=== PATIENT | male | born 1950 | race Caucasian/White ===

== ENCOUNTER 2020-10-26 19:38 | Observation (INO) | payer MEDICARE, OTHER, SELFPAY ==
[2020-10-26] VITALS (15 sets, daily range): BP systolic 113–155; BP diastolic 73–98; PULSE 73–80; RESP 13–24; TEMP 36.6; O2SAT 93–98
--- NOTE | ~2020-10-26 | CT_ITS ---
EXAMINATION: CT brain wo con DATE: 10/26/2020 20:59 INDICATION: COVID 19. Weakness. TECHNIQUE: Computed tomography (CT) of the head was performed without intravenous contrast. Sagittal and coronal reconstructions were performed. The mA was adjusted according to patient size. Iterative reconstruction technique was employed. The dose-length product was 605.33 mGy-cm. COMPARISON: head CT dated 03/12/2005 FINDINGS: No acute intracranial hemorrhage, acute infarction or mass/mass effect. There is moderate scattered w tobi matter hypoattenuation consistent with chronic small vessel ischemic disease. There is increase d prominence of the sulci and ventricles consistent with mild to moderate age-appropriate diffuse cer ebral volume loss. Mild mucosal thickening the bilateral ethmoid sinuses. The orbits and mastoid air cells are normal. Intracranial calcified cerebral atherosclerosis is noted. IMPRESSION: 1. Age-related changes including mild to moderate diffuse volume loss and scattered white matter hypo attenuation consistent with chronic small vessel schema disease. Reviewed, dictated and finalized at location . UCTION TECHNICIAN IMPRESSION: 1. Age-related changes including mild to moderate diffuse volume loss and scatt ered white matter hypoattenuation consistent with chronic small vessel schema d isease.
--- NOTE | ~2020-10-26 | XR_ITS ---
EXAMINATION: XR chest 1V portable DATE: 10/26/2020 21:00 INDICATION: COVID 19. Weakness and fatigue. TECHNIQUE: frontal view of the chest was obtained. COMPARISON: Chest radiograph dated 04/01/2014 FINDINGS: Subtle opacities in the left mid and right lower lung zones. No pleural effusion or pneumothorax. The cardiomediastinal silhouette is normal. Median sternotomy wires and mediastinal surgical clips are s een, likely from prior coronary artery bypass grafting. IMPRESSION: 1. Subtle opacities in the left mid and right lower lung zones which could represent pneumonia, mild pulmonary edema, atelectasis or some combination thereof. Reviewed, dictated and finalized at location H. DATABASE ADMINISTRATOR IMPRESSION: 1. Subtle opacities in the left mid and right lower lung zones which could repr esent pneumonia, mild pulmonary edema, atelectasis or some combination thereof.
--- NOTE | 2020-10-26 19:43 | ECG_ITS ---
Measurements Intervals [place] Rate: 79 P: 17 [place]: 190 QRS: 27 QRSD: 106 T: 72 QT: 355 QTc: 409 Interpretive Statements SINUS RHYTHM CANNOT RULE OUT SEPTAL INFARCT, AGE INDETERMINATE CONSIDER INFERIOR INFARCT, AGE INDETERMINATE BORDERLINE ST-T WAVE ABNORMALITY- HIGH LATERAL LEADS BASELINE ARTIFACT- I, II, III, AVR, AVL, AVF, V1-V4 ABNORMAL ECG Electronically Signed On 10-27-2020 8:46:33 DESIGN AGENT by Nile Warren D.O.
--- NOTE | 2020-10-26 19:43 | ED.WEAKNESS ---
HPI - Weakness General Chief complaint: Weakness Stated complaint: covid +, weakness, decreased urine output Time Seen by Provider: 10/26/20 19:43 Source: patient and EMS Mode of arrival: EMS Limitations: no limitations History of Present Illness HPI Narrative: Patient is a 70-year-old male who presents for evaluation of lethargy, weakness, cough and shortness of breath in the setting of recent Covid diagnosis. Patient states he had a positive Covid test result called to him today. His daughter prompted him to come to the ER due to his cough, shortness of breath and diffuse weakness. Patient currently is alert and oriented x4, when I asked if he has a cough he initially denies but then states he does have a cough and is coughing in the room. He is denying any chest pain. He is reporting feeling diffusely weak. He denies any focal weakness or numbness. He reports he has had decreased urine output today, but then also states he has had nothing to eat or drink because he does not feel well. Patient oxygen saturation in room is 88% on room air during my conversation with the patient. At times I feel like the patient does not have clear insight as to why he is here. He is unable to tell me much medical history. He says he came to the ER for lethargy and to shut his daughter up. Related Data Home Medications Medication Instructions Recorded Confirmed atorvastatin 20 mg HS 10/26/20 losartan 25 mg DAILY 10/26/20 metoprolol tartrate 25 mg DAILY 10/26/20 Allergies Allergy/AdvReac Type Severity Reaction Status Date / Time No Known Allergies Allergy Mild Unverified 10/26/20 20:08 Review of Systems Review of Systems: Narrative: CONSTITUTIONAL: Reports fever and chills EYES: Denies visual changes, redness, or discharge. ENT: Reports rhinorrhea and congestion CARDIOVASCULAR: Denies chest pain, palpitations, or edema. RESPIRATORY: Reports dry cough, denies current shortness of breath GASTROINTESTINAL: Denies abdominal pain, nausea, vomiting, or diarrhea. GENITOURINARY: Denies dysuria or hematuria. SKIN: Denies rash or itching. MUSCULOSKELETAL: Denies back pain, joint pain, reports myalgias NEUROLOGIC: Denies headache, numbness, reports feeling diffusely weak PMFSH Past Medical History Medical History (Updated 10/26/20 @ 20:56 by Adelaide Almanzar MD) Coronary artery disease GI bleed Heart attack Hyperlipidemia Hypertension Ruptured abdominal aortic aneurysm TIA (transient ischemic attack) Surgical History Surgical History (Updated 10/26/20 @ 19:54 by Adelaide Almanzar MD) Hx of CABG Exam Narrative: Exam Narrative: GENERAL: Awake, alert, conversant HEAD: Normocephalic, atraumatic. EYES: PERRLA and EOMI. ENT: Nares clear, no rhinorrhea or epistaxis. Mucous membranes dry NECK: Supple. CHEST: Hypoxic, no tachypnea no respiratory distress, breathing even and non labored HEART: Regular rate, sinus rhythm ABDOMEN:Non distended, non tender EXTREMITIES: Normal range of motion. No edema. SKIN: Warm, dry, no rash. NEURO:No focal deficits. Alert and oriented x3, patient has difficulties recalling exact details of medical history Course Vital Signs Vital signs: Vital Signs Pulse Oximetry 93 10/26/20 19:45 Pulse Rate 80 10/26/20 20:30 Respiratory Rate 22 H 10/26/20 20:30 Blood Pressure 120/74 10/26/20 20:01 Pulse Oximetry 97 10/26/20 21:03 MDM - Weakness MDM Narrative Medical decision making narrative: Patient is a 70-year-old with recent Covid diagnosis who presents for lethargy, feeling diffusely weak, cough and shortness of breath. At the time of my evaluation, oxygen saturation goes from 93% to 88% while talking with me in the room. Thus the patient was placed on 2 L and given IV Decadron. Other lab results notable for mild thrombocytopenia. No sign of active bleeding on exam, patient does not require any transfusion. Patient with mild hypokalemia which we are able to replenish orally
[2020-10-26 20:03] LABS: Basophils Percent Auto 0.4 % (0.2-1.2); Eosinophils Percent Auto 0.4 % (0-4.4); Hemoglobin 13.9 g/dL (14.0-18.0); Immature Granulocyte Absolute 0.07 K/mm3 (0.00-0.031); Immature Granulocyte Percent A 1.5 % (0-0.5); Immature Platelet Fraction Pct 10.3 % (0.9-11.2); Lymphocytes Absolute Auto 0.54 K/mm3 (0.9-3.2); Lymphocytes Percent Auto 11.3 % (18.3-44.2); Mean Corpuscular HGB Conc 33.9 g/dl (32-36); Mean Corpuscular Hemoglobin 32.5 pg (26-34); Mean Corpuscular Volume 95.8 fl (80-100); Mean Platelet Volume 11.8 fl (7.4-10.4); Monocytes Absolute Auto 0.5 K/mm3 (0.1-0.6); Monocytes Percent Auto 10.9 % (2.6-8.5); Neutrophils Absolute Auto 3.6 K/mm3 (1.3-6.7); Neutrophils Percent Auto 75.5 % (45.5-73.1); Platelet Count Result 116 k/mm3 (150-375); Red Blood Count 4.28 M/mm3 (4.6-6.20); Red Cell Distribution Width 13.9 % (11.5-14.5); White Blood Count 4.8 K/mm3 (4.5-10.0)
[2020-10-26] MEDS: SODIUM CHLORIDE 0.9% IV 500 ML 999 ML IV CONT (20:05)
[2020-10-26 20:12] LABS: Partial Thromboplastin Time 36.6 SECONDS (22.3-36.8); Prothrombin Time 13.3 Seconds (11.1-14.7)
[2020-10-26 20:20] LABS: Lactate Dehydrogenase 517 U/L (313-618)
[2020-10-26 20:22] LABS: Alanine Aminotransferase 32 U/L (4-50); Albumin Level 3.9 g/dL (3.5-5.1); Alkaline Phosphatase 83 U/L (38-126); Anion Gap 8 mmol/L (8-16); Aspartate Amino Transferase 34 U/L (17-59); Bilirubin,Total 0.9 mg/dL (0.2-1.3); Blood Urea Nitrogen 13 mg/dL (9-20); CRP 1.9 mg/dL (<1.0); Calcium 8.4 mg/dL (8.4-10.2); Carbon Dioxide 33 mmol/L (22-30); Chloride 92 mmol/L (98-107); Estimated CRCL calculation 99 ml/min; Estimated Glomerular Filt Rate > 60; Glucose 148 mg/dL (75-110); Potassium 3.2 mmol/L (3.4-5.0); Sodium 133 mmol/L (137-145)
[2020-10-26 20:32] LABS: Troponin I < 0.012 ng/mL (0.000-0.034)
--- NOTE | 2020-10-26 20:47 | PC.NURSE ---
urine collected and sent to lab. patient to CT via stretcher.
[2020-10-26 20:53] LABS: Add Urine Microscopic? YES; Appearance Urine Clear (Clear); Bacteria Urine Trace /hpf; Bilirubin Urine Negative (Negative); Blood Urine Negative (Negative); Color Urine Yellow (Yellow); Glucose Urine UA Negative (Negative); Ketones Urine Negative (Negative); Leukocyte Esterase Ur Negative LEU/UL (Negative); Mucus Urine Moderate /lpf; Nitrate Urine Negative (Negative); Protein Urine 1+ mg/dL (Negative); RBC Urine 0-2 /hpf (0-2); Specific Grav Ur 1.026 (1.001-1.035); Squamous Epithelial Cell Urine Rare /hpf (Few); WBC Urine 0-3 /hpf
--- NOTE | 2020-10-26 21:09 | PC.NURSE ---
back from CT. respiratory in room for ABG's.
[2020-10-26 21:11] LABS: Alveolar/Arterial O2 Gradient 57.7 mmHg; Base Excess ABG 3.5 mEq/l (+/-2.0); Carboxyhemoglobin 0.9 % THb (0-2.0); Fractional Inspired Oxygen 34 %; HCO3 ABG 27.7 mEq/l (22.0-26.0); Methemoglobin ABG 0.1 %THb (0-1.5); Modified Allen's Test Pass; Oxygen Content ABG 18.4 %vol (16.0-22.0); Oxygen Saturation ABG 98.8 % (95.0-100.0); Oxyhemoglobin 97.4 % THb (90.0-100.0); PCO2 ABG 40.6 mmHg (35.0-45.0); PO2 ABG 137.4 mmHg (80.0-100.0); PO2 FiO2 Ratio Arterial Blood 4.04 %; Reduced Hemoglobin 1.6 %THb (0-5.0); Site Drawn RIGHT RADIAL; Total Hemoglobin 13.3 g/dL (12.0-18.0); pH ABG 7.452 (7.350-7.450)
[2020-10-26 21:12] LABS: Device NASAL CANNULA; Liters per Minute 3.5 LPM
[2020-10-26] MEDS: POTASSIUM CHLORIDE 20 MEQ PACKET (FOR LIQUID) PO (21:20)
--- NOTE | 2020-10-26 21:23 | PC.NURSE ---
spoke with daughter on phone. updated on current results. daughter states patient has had increasing weakness over the last 1-2 days. has been incontinent of stool and urine at home. daughter forced him to come to ED today. daughter states she is a nurse. gave some medical hx on patient. hospitalist now in room.
[2020-10-26] MEDS: ONDANSETRON INJ 4 MG/2 ML VIAL IV PUSH (21:25)
--- NOTE | 2020-10-26 21:36 | PM.IMHP ---
H&P: HPI History of Present Illness Date/Time: 10/26/20 21:36 Chief complaint: COVID 19 Pneumonia/Hypoxic respiratory failure Narrative: This is a pleasant 70 year old male with known CAD+, HTN, and hyperlipidemia who presented to the hospital with generalized weakness, sporadic nonproductive cough, diarrhea and shortness of breath. He reports feeling sick for the past few days. He tested positive for COVID-19 today. His daughter had reported to ER staff that that patient had decreased PO intake of food and fluids and she was worried about him. On my encounter with the patient tonight he denies any recent fevers, chills, sore throat, chest pain, palpitations, abdominal pain, nausea, vomiting, dysuria, rectal bleeding or LE swelling. The patient was found to be saturating 88% on room air with any movement. He was placed on supplemental oxygen in the ER. The patient is somewhat confused and he himself is not sure why he is here. Brain CT was obtained which was unremarkable for acute pathology. Routine labs obtained in the ER demosntrated mild hypokalemia. The patient had potassium replaced orally. He was treated w/ dexamethasone. We have been asked to admit the patient to the hospital for further care. He has no other complaints. Review of Systems Review of Systems: All systems reviewed & are unremarkable except as noted in HPI and below PMFSH Past Medical History Medical History (Updated 10/26/20 @ 21:59 by Richard Harper MD) Coronary artery disease GI bleed Heart attack Hyperlipidemia Hypertension Ruptured abdominal aortic aneurysm TIA (transient ischemic attack) Surgical History Surgical History Hx of CABG Social History Social History Smoking status: Never smoker Alcohol intake: current Drinks per week: 12 Substance use: never Gender identity (if verbalized by the patient): Male Spiritual care concerns: No Comments The patient does not know his family medical history. Meds Home Medications and Allergies Home Medications Medication Instructions Recorded Confirmed Type atorvastatin 20 mg HS 10/26/20 10/27/20 History losartan 25 mg DAILY 10/26/20 10/27/20 History metoprolol tartrate 25 mg BID 10/26/20 10/27/20 History aspirin [Adult Aspirin Regimen] 81 mg PO DAILY 10/27/20 10/27/20 History Allergies Allergy/AdvReac Type Severity Reaction Status Date / Time No Known Allergies Allergy Mild Verified 10/27/20 04:33 Vital Signs Vital Signs - 24 hr 10/26/20 19:45 10/26/20 19:53 10/26/20 19:58 Pulse Rate 73 76 Respiratory Rate 22 H 23 H Blood Pressure 113/73 Pulse Oximetry 93 96 98 10/26/20 20:00 10/26/20 20:01 10/26/20 20:05 Pulse Rate 76 77 78 Respiratory Rate 19 20 Blood Pressure 120/74 Pulse Oximetry 97 97 10/26/20 20:20 10/26/20 20:30 10/26/20 21:03 Pulse Rate 79 80 Respiratory Rate 24 H 22 H Blood Pressure Pulse Oximetry 98 97 10/26/20 21:15 Pulse Rate Respiratory Rate Blood Pressure Pulse Oximetry 97 Exam Const: General: cooperative, alert, awake, ill appearing, tired appearing and uncomfortable Nutritional Appearance: well nourished Orientation/consciousness: oriented to person and oriented to place HENMT: Head: normal to inspection General nose exam: Normal external nose present Face and sinus: normal facial exam Mouth: Yes Normal oral and palatal mucosa present and Yes oropharynx normal Eyes: Pupils: Equal, round and reactive pupils present EOM: EOMs intact bilaterally Neck: Neck: supple and no JVD Thyroid: thyroid normal Lymphatic: lymphadenopathy not noted Resp: Effort & Inspection: normal respiratory effort Auscultation: diminished lung sounds Cardio: Rate: regular rate Rhythm: regular rhythm Heart sounds: no murmurs GI: Inspection: normal to inspection Auscultation: normal bowel sounds Skin:
--- NOTE | 2020-10-26 21:49 | PC.NURSE ---
spoke with patient's daughter. aware of admission.
--- NOTE | 2020-10-26 22:20 | PC.NURSE ---
waiting for bed assignment upstairs. report given to Rasta ANTUNEZ.
[2020-10-26 23:56] LABS: Glucose Point of Care 183 (65-105)
[2020-10-27] VITALS (9 sets, daily range): BP systolic 117–176; BP diastolic 67–96; PULSE 70–80; RESP 18–20; TEMP 36.4–37.2; O2SAT 94–100; BMI 33.7
--- NOTE | 2020-10-27 04:15 | PC.NURSE ---
This patient, Sharad Mcclain, was admitted to [facility] Surg Room 324-01. Patient/family oriented to hospital policies and general routines including ID bracelet, bed and alarms, visiting hours, pain management, procedures, bathroom and other care routines, personal items, smoking policy, room service/diet, and visiting hours. Information on how to activate the Rapid Response Team has been discussed. Patient/Family are encouraged to report perceived risks to care and to ask questions if they do not understand what they are told or what they should do.
[2020-10-27 07:11] LABS: Basophils Percent Auto 0.8 % (0.2-1.2); Hematocrit 42.4 % (42.0-52.0); Hemoglobin 14.3 g/dL (14.0-18.0); Immature Granulocyte Absolute 0.06 K/mm3 (0.00-0.031); Immature Granulocyte Percent A 2.3 % (0-0.5); Immature Platelet Fraction Pct 9.7 % (0.9-11.2); Lymphocytes Absolute Auto 0.38 K/mm3 (0.9-3.2); Lymphocytes Percent Auto 14.4 % (18.3-44.2); Mean Corpuscular HGB Conc 33.7 g/dl (32-36); Mean Corpuscular Hemoglobin 31.8 pg (26-34); Mean Corpuscular Volume 94.2 fl (80-100); Mean Platelet Volume 11.8 fl (7.4-10.4); Monocytes Absolute Auto 0.3 K/mm3 (0.1-0.6); Monocytes Percent Auto 12.9 % (2.6-8.5); Neutrophils Absolute Auto 1.8 K/mm3 (1.3-6.7); Neutrophils Percent Auto 69.6 % (45.5-73.1); Platelet Count Result 107 k/mm3 (150-375); Red Cell Distribution Width 13.5 % (11.5-14.5); White Blood Count 2.6 K/mm3 (4.5-10.0)
[2020-10-27 07:38] LABS: Anion Gap 6 mmol/L (8-16); Blood Urea Nitrogen 11 mg/dL (9-20); Calcium 8.6 mg/dL (8.4-10.2); Carbon Dioxide 30 mmol/L (22-30); Chloride 99 mmol/L (98-107); Estimated CRCL calculation 109 ml/min; Estimated Glomerular Filt Rate > 60; Glucose 171 mg/dL (75-110); Potassium 3.9 mmol/L (3.4-5.0); Sodium 135 mmol/L (137-145)
[2020-10-27] MEDS: ALBUTEROL SULFATE (*SP) AEROSOL 1 PUFF 2 PUFF INHALATION ×2 (08:30→12:00)
[2020-10-27] MEDS: METOPROLOL TARTRATE 25 MG TABLET BY MOUTH (10:29)
[2020-10-27] MEDS: LOSARTAN POTASSIUM 25 MG TABLET BY MOUTH (10:29)
[2020-10-27] MEDS: ASPIRIN 81 MG ENTERIC TABLET PO (10:29)
--- NOTE | 2020-10-27 14:08 | PM.DS ---
DS: Admitting Diagnosis Admitting Diagnosis Admitting Diagnosis: COVID 19 Pneumonia/Hypoxic respiratory failure DS: Discharge Diagnosis Discharge Diagnosis (1) Hypoxia: Code(s): R09.02 - Hypoxemia Status: Acute Assessment and Plan: Patient noted to be hypoxic upon presentation down to 88%, although no episodes of hypoxia are documented. Secondary to COVID-19 pneumonia. He required L O2 per nasal cannula and was quickly weaned back to room air. He was able to maintain oxygen saturation on room air. (2) COVID-19: Code(s): U07.1 - COVID-19 Status: Acute Assessment and Plan: Patient had positive test on 10/26/2020. CXR showed subtle opacities in left mid and lower lung Zones. He previously required 1 L supplemental O2. he had marked symptomatic improvement. He remained afebrile. Inflammatory markers unremarkable. Received 2 doses IV dexamethasone and will continue with PO dexamethasone at home to complete 10 days. Supportive care discussed. We discussed CDC recommendations for self-isolation. (3) Dehydration: Code(s): E86.0 - Dehydration Status: Acute Assessment and Plan: Noted to have decreased urine output on presentation. He was rehydrated with IV fluids and was euvolemic on my exam. Urine output adequate. Increased PO water intake encouraged. (4) Hypokalemia: Code(s): E87.6 - Hypokalemia Status: Acute Assessment and Plan: Mildly decreased at presentation. Replaced orally. Potassium was monitored and remained stable following. (5) Hypertension: Qualifiers: Hypertension type: unspecified Qualified Code(s): I10 - Essential (primary) hypertension Code(s): I10 - Essential (primary) hypertension Status: Chronic Assessment and Plan: Blood pressures evaluated and remained stable. Continue losartan and metoprolol (6) Hyperlipidemia: Qualifiers: Hyperlipidemia type: unspecified Qualified Code(s): E78.5 - Hyperlipidemia, unspecified Code(s): E78.5 - Hyperlipidemia, unspecified Status: Chronic Assessment and Plan: Continue atorvastatin. (7) Coronary artery disease: Qualifiers: Coronary Disease-Associated Artery/Lesion type: bypass graft [place] vs. transplanted heart: [place] heart Associated angina: without angina Qualified Code(s): I25.810 - Atherosclerosis of coronary artery bypass graft(s) without angina pectoris Code(s): I25.10 - Atherosclerotic heart disease of [place] coronary artery without angina pectoris Status: Chronic Assessment and Plan: Remained asymptomatic. Continue metoprolol and aspirin. (8) Leukopenia: Code(s): D72.819 - Decreased white blood cell count, unspecified Status: Acute Assessment and Plan: White count declined down to 2.6. Suspect secondary to acute viral illness. Repeat CBC in 1 week. DS: Summary Hospital Course Reason for hospitalization: COVID-19 pneumonia Hospital Course: date of admission: 10/26/2020 date of discharge: 10/27/2020 Sharad Mcclain is a 70 year old male with a history of CAD, HTN, HLD, and TIA who presented to the emergency department with complaints of lethargy, weakness, cough, and shortness of breath after testing positive for COVID-19 that day. At presentation, he was noted to be hypoxic at 88% with additional VSS and patient afebrile, potassium mildly decreased, additional electrolytes stable, head CT negative for acute findings, and CXR with subtle opacities in left mid and right lower lung zones. He was admitted to the hospitalist service for further evaluation and management. Please see above for further details. He began feeling much better and was eager for discharge home. He was tolerating room air and had symptomatic improvement. Given overall improvement, he was determined to no longer require inpatient care and was felt to be stable for di
[2020-10-27] MEDS: DEXAMETHASONE SOD PHOS INJ 4 MG/ML VIAL 6 MG IV PUSH (15:03)
== END 2020-10-27 15:26 | disposition home or self-care (01) ==
LOC: ANHED 20:56 → ANH3MEDSUR 10-27 01:42
PROVIDERS: Admitting Provider Family Medicine; Emergency Provider Emergency Medicine; Visit Provider Family Medicine
DX: U07.1 COVID-19 (principal); R09.02 Hypoxemia; E86.0 Dehydration; E87.6 Hypokalemia; D72.819 Decreased white blood cell count, unspecified; D69.6 Thrombocytopenia, unspecified; E78.5 Hyperlipidemia, unspecified; I25.10 Atherosclerotic heart disease of native coronary artery without angina pectoris; I10 Essential (primary) hypertension; R06.02 Shortness of breath; Z86.73 Personal history of transient ischemic attack (TIA), and cerebral infarction without residual deficits; Z95.1 Presence of aortocoronary bypass graft
CPT/HCPCS: 36415; 36600; 70450; 71045; 80048; 80053; 81001; 82375; 82728; 82805; 83050; 83615; 84484; 85025; 85055; 85610; 85730; 86140; 93005; 94640; 96365; 96375; 96376; 99285; A9270; G0378; J0131; J1100; J2405; J7030; J7040

== ENCOUNTER 2020-10-28 16:07 | Emergency (ER) | payer MEDICARE, OTHER, SELFPAY ==
[2020-10-28] VITALS (9 sets, daily range): BP systolic 122–133; BP diastolic 71–82; PULSE 78–97; RESP 19–24; TEMP 36.7–37.8; O2SAT 92–96
--- NOTE | ~2020-10-28 | XR_ITS ---
EXAMINATION: XR chest 1V portable DATE: 10/28/2020 16:52 INDICATION: Shortness of breath. Fever. COVID-19 pneumonia. TECHNIQUE: A single frontal view of the chest was obtained on 2 radiographs. COMPARISON: Chest single view 10/26/2020, CT abdomen and pelvis 04/01/2014 FINDINGS: There are mild airspace opacities in the mid and lower lung zones. No pleural effusion or p neumothorax. The heart size is normal. Median sternotomy wires and mediastinal surgical clips are see n, likely from prior coronary artery bypass grafting. IMPRESSION: 1. Stable mild airspace opacities in the mid and lower lung zones, consistent with pneumonia. Reviewed, dictated and finalized at location A. [employer]ENTER REPRESENTATIVE IMPRESSION: 1. Stable mild airspace opacities in the mid and lower lung zones, consistent w ith pneumonia.
[2020-10-28 17:03] LABS: Basophils Percent Auto 0.3 % (0.2-1.2); Hematocrit 41.1 % (42.0-52.0); Immature Granulocyte Absolute 0.06 K/mm3 (0.00-0.031); Immature Granulocyte Percent A 0.9 % (0-0.5); Immature Platelet Fraction Pct 9.9 % (0.9-11.2); Lymphocytes Absolute Auto 0.28 K/mm3 (0.9-3.2); Lymphocytes Percent Auto 4.1 % (18.3-44.2); Mean Corpuscular HGB Conc 34.1 g/dl (32-36); Mean Corpuscular Hemoglobin 32.5 pg (26-34); Mean Corpuscular Volume 95.4 fl (80-100); Mean Platelet Volume 11.7 fl (7.4-10.4); Monocytes Absolute Auto 0.5 K/mm3 (0.1-0.6); Monocytes Percent Auto 7.7 % (2.6-8.5); Platelet Count Result 145 k/mm3 (150-375); Red Blood Count 4.31 M/mm3 (4.6-6.20); Red Cell Distribution Width 13.4 % (11.5-14.5); White Blood Count 6.9 K/mm3 (4.5-10.0)
[2020-10-28] MEDS: SODIUM CHLORIDE 0.9% IV 1,000 ML 999 ML IV CONT (17:14)
--- NOTE | 2020-10-28 17:15 | ED.GENADULT ---
HPI - General Adult General Chief complaint: Fever Stated complaint: WEAKNESS/FEVER Time Seen by Provider: 10/28/20 16:11 History of Present Illness HPI narrative: Patient is a 70-year-old male who presents to the ER with fever. Patient was diagnosed several days ago with COVID-19. He is hospitalized for day and started on dexamethasone due to brief hypoxia. He has been at home. Today he had an elevated temperature and he reports he was told to come to the ER for evaluation. He denies any other symptoms including cough/shortness of breath/nausea/vomiting/dizziness/chest pain. Reports he has been compliant with his home medication. Is otherwise not particularly enthusiastic about giving a history Related Data Home Medications Medication Instructions Recorded Confirmed atorvastatin 20 mg HS 10/26/20 10/27/20 losartan 25 mg DAILY 10/26/20 10/27/20 metoprolol tartrate 25 mg BID 10/26/20 10/27/20 aspirin [Adult Aspirin Regimen] 81 mg PO DAILY 10/27/20 10/27/20 Allergies Allergy/AdvReac Type Severity Reaction Status Date / Time No Known Allergies Allergy Mild Verified 10/28/20 17:15 Review of Systems Review of Systems: All systems reviewed & are unremarkable except as noted in HPI and below Constitutional: Constitutional: Denies chills, Reports fatigue and Reports fever(s) ENT: Denies nasal congestion and Denies sore throat Cardiovascular: Cardiovascular: Denies chest pain and Denies radiating jaw, neck or arm pain Respiratory: Respiratory: Denies cough, Denies dyspnea and Denies wheezing Gastrointestinal: Gastrointestinal: Denies abdominal pain, Denies nausea and Denies vomiting PMFSH Past Medical History Medical History (Updated 10/28/20 @ 17:54 by Alonso Samson MD) Coronary artery disease GI bleed Heart attack Hyperlipidemia Hypertension Ruptured abdominal aortic aneurysm TIA (transient ischemic attack) Surgical History Surgical History Hx of CABG Social History Social History Smoking status: Never smoker Alcohol intake: current Drinks per week: 12 Substance use: never Gender identity (if verbalized by the patient): Male Spiritual care concerns: No Exam Narrative: Exam Narrative: GENERAL: Well-appearing, well-nourished, and in no acute distress. HEAD: Normocephalic, atraumatic. CHEST: Clear to auscultation. No respiratory distress. HEART: Regular rate and rhythm. Normal peripheral pulses. ABDOMEN: Soft, nontender, nondistended. EXTREMITIES: Normal range of motion. No edema. SKIN: Warm, dry, no rash. Face seems to have some actinic keratosis. NEURO: Alert and oriented x3. PSYCH: Normal mood and affect. Course Course Emergency Course: Labs unremarkable. X-ray unchanged. Discharge home. Continue Decadron. Vital Signs Vital signs: Vital Signs Temperature 100.0 F H 10/28/20 16:25 Pulse Rate 97 10/28/20 16:25 Respiratory Rate 24 H 10/28/20 16:25 Blood Pressure 122/82 10/28/20 16:25 Pulse Oximetry 92 10/28/20 16:25 Temperature 100.0 F H 10/28/20 16:25 Pulse Rate 97 10/28/20 16:25 Respiratory Rate 24 H 10/28/20 16:25 Blood Pressure 122/82 10/28/20 16:25 Pulse Oximetry 92 10/28/20 16:25 Medical Decision Making Vital Signs Vital Signs: Vital Signs Temperature 100.0 F H 10/28/20 16:25 Pulse Rate 97 10/28/20 16:25 Respiratory Rate 24 H 10/28/20 16:25 Blood Pressure 122/82 10/28/20 16:25 Pulse Oximetry 92 10/28/20 16:25 Temperature 100.0 F H 10/28/20 16:25 Pulse Rate 97 10/28/20 16:25 Respiratory Rate 24 H 10/28/20 16:25 Blood Pressure 122/82 10/28/20 16:25 Pulse Oximetry 92 10/28/20 16:25 Lab Data Result diagrams: 10/28/20 16:53 10/28/20 16:53 Labs: Lab Results 10/28/20 10/28/20 Range/Units 16:53 16:53 WBC 6.9 (4.5-10.0) K/mm3 RBC 4.31 L (4.6-6
[2020-10-28 17:17] LABS: Alanine Aminotransferase 30 U/L (4-50); Albumin Level 3.8 g/dL (3.5-5.1); Alkaline Phosphatase 78 U/L (38-126); Anion Gap 8 mmol/L (8-16); Aspartate Amino Transferase 34 U/L (17-59); Blood Urea Nitrogen 17 mg/dL (9-20); Calcium 8.7 mg/dL (8.4-10.2); Carbon Dioxide 32 mmol/L (22-30); Chloride 93 mmol/L (98-107); Estimated CRCL calculation 84 ml/min; Estimated Glomerular Filt Rate > 60; Glucose 123 mg/dL (75-110); Potassium 3.4 mmol/L (3.4-5.0); Sodium 133 mmol/L (137-145)
--- NOTE | 2020-10-28 18:45 | PC.NURSE ---
Call to pt's daughter to come and pickle cutter. Explained that the testing was negative, that the patient continues to have COVID and pneumonia, and that he may run a fever for up to 10 days. States their physician told them to come in because the fever was high. Explained that a fever helps to heal, and to return if the fever doesn't decrease with tylenol or ibuprofen. Also told to increase fluids, states what kind of fluds, because he drank a lot of beer last night . Explained that alcohol is not considered an fluid, and to avoid alcohol when ill. Requesting home health staff to come in and bathe the patient. Encouraged family to make sure to follow up with their primary physician for this and to return if problems. Pt awoken and explained this to him as well. Note pt incontinent of urine, states that happens to me sometimes .
== END 2020-10-28 19:25 | disposition home or self-care (01) ==
PROVIDERS: Emergency Provider Emergency Medicine
DX: U07.1 COVID-19 (principal); I25.10 Atherosclerotic heart disease of native coronary artery without angina pectoris; I25.2 Old myocardial infarction; E78.5 Hyperlipidemia, unspecified; I10 Essential (primary) hypertension; Z86.73 Personal history of transient ischemic attack (TIA), and cerebral infarction without residual deficits; Z95.1 Presence of aortocoronary bypass graft; R91.8 Other nonspecific abnormal finding of lung field
CPT/HCPCS: 36415; 71045; 80053; 85025; 85055; 96361; 96374; 99284; J0131; J7030

== ENCOUNTER 2022-09-14 09:44 | Outpatient (CLI) | payer MEDICARE, SELFPAY ==
[2022-09-14 10:32] LABS: Basophils Absolute Auto 0.1 K/mm3 (0.0-0.1); Eosinophils Absolute Auto 0.2 K/mm3 (0-0.3); Eosinophils Percent Auto 2.2 % (0-4.4); Hematocrit 46.5 % (42.0-52.0); Hemoglobin 15.4 g/dL (14.0-18.0); Immature Granulocyte Percent A 1.5 % (0-0.5); Mean Corpuscular HGB Conc 33.1 g/dl (32-36); Mean Corpuscular Hemoglobin 32.6 pg (26-34); Mean Corpuscular Volume 98.3 fl (80-100); Mean Platelet Volume 11.9 fl (7.4-10.4); Monocytes Absolute Auto 0.7 K/mm3 (0.1-0.6); Monocytes Percent Auto 9.9 % (2.6-8.5); Neutrophils Absolute Auto 4.5 K/mm3 (1.3-6.7); Neutrophils Percent Auto 67.4 % (45.5-73.1); Platelet Count Result 154 k/mm3 (150-375); Red Blood Count 4.73 M/mm3 (4.6-6.20); White Blood Count 6.7 K/mm3 (4.5-10.0)
[2022-09-14 10:35] LABS: Add Urine Microscopic? YES; Appearance Urine Clear (Clear); Bilirubin Urine Negative (Negative); Blood Urine Negative (Negative); Color Urine Yellow (Yellow); Glucose Urine UA Negative (Negative); Ketones Urine Negative (Negative); Leukocyte Esterase Ur Negative LEU/UL (Negative); Mucus Urine Rare /lpf; Nitrate Urine Negative (Negative); Protein Urine Negative (Negative); RBC Urine 0-2 /hpf (0-2); Specific Grav Ur 1.014 (1.001-1.035); WBC Urine 0-3 /hpf
[2022-09-14 10:42] LABS: Alanine Aminotransferase 38 U/L (6-50); Albumin Level 4.4 g/dL (3.5-5.1); Alkaline Phosphatase 106 U/L (38-126); Anion Gap 10 mmol/L (8-16); Aspartate Amino Transferase 34 U/L (17-59); Bilirubin,Total 1.1 mg/dL (0.2-1.3); Blood Urea Nitrogen 11 mg/dL (9-20); Calcium 9.4 mg/dL (8.4-10.2); Carbon Dioxide 31 mmol/L (22-30); Chloride 100 mmol/L (98-107); Cholesterol 161 mg/dL (0-200); Estimated Glomerular Filt Rate > 60; Glucose 122 mg/dL (65-110); HDL Direct 36 mg/dL; Potassium 4.1 mmol/L (3.4-5.0); Sodium 141 mmol/L (137-145); Triglycerides 260 mg/dL (<150)
[2022-09-14 10:53] LABS: LDL Cholesterol Direct 92 mg/dL
[2022-09-14 11:12] LABS: Prostate Specific Antigen 0.8 ng/mL (< OR = 4.0)
[2022-09-14 12:00] LABS: Hepatitis C Virus Antibody Negative (Negative)
== END 2022-09-14 09:45 | disposition home or self-care (01) ==
PROVIDERS: PCP Nurse Practitioner; Visit Provider Nurse Practitioner
DX: R39.12 Poor urinary stream (principal); R97.20 Elevated prostate specific antigen [PSA]
CPT/HCPCS: 36415; 80053; 80061; 81001; 84153; 84443; 85025; 86803

== ENCOUNTER 2023-07-17 19:12 | Inpatient (IN) | payer MEDICARE, SELFPAY ==
[2023-07-17] VITALS (7 sets, daily range): BP systolic 107–132; BP diastolic 70–81; PULSE 95–113; RESP 20–23; TEMP 36.3–38.4; O2SAT 93–97; BMI 31.5
--- NOTE | ~2023-07-17 | XR_ITS ---
EXAMINATION: XR chest 1V portable DATE: 07/19/2023 05:37 INDICATION: COVID-19 pneumonia. TECHNIQUE: A single frontal view of the chest was obtained. COMPARISON: Chest single view 07/17/2023, CT abdomen and pelvis 07/17/2023 FINDINGS: The lung volumes are normal. There is a diffuse interstitial pattern in the lungs. No pleur al effusion or pneumothorax. The heart size is normal. Median sternotomy wires and mediastinal surgic al clips are seen, likely from prior coronary artery bypass grafting. IMPRESSION: 1. Persistent interstitial pattern in the lungs, consistent with chronic interstitial lung disease wi thout or with superimposed mild pulmonary edema. Reviewed, dictated and finalized at location A. IMPRESSION: 1. Persistent interstitial pattern in the lungs, consistent with chronic inters titial lung disease without or with superimposed mild pulmonary edema.
--- NOTE | ~2023-07-17 | CT_ITS ---
EXAMINATION: CT abdomen pelvis w con DATE: 07/17/2023 20:43 INDICATION: ams, confusion, vomiting TECHNIQUE: Computed tomography (CT) of the abdomen and pelvis was performed with 100 mL Omnipaque-350 intravenous contrast. Automated exposure control and iterative reconstruction technique were employe d. The dose-length product was 1589.17 mGy-cm. COMPARISON: 04/01/2014, images only. FINDINGS: Lower thorax: Aortic valve and coronary artery calcification. Bibasilar scar/atelectasis. Mild periph eral septal thickening and reticulation. Liver: Normal. Biliary/Gallbladder: Gallbladder is normal. No bile duct dilation. Pancreas: No mass or duct dilation. Spleen: Normal. Adrenals:No mass. Kidneys: No mass, stone, or hydronephrosis. GI tract: Mild distal esophageal and gastric wall edema. No small or large bowel dilation. Normal isma endix. Diverticulosis without diverticulitis. Mesentery/Peritoneum: No ascites, mass, or free air. Retroperitoneum: No mass. Atherosclerotic abdominal aortic and/or arterial calcifications. Patent aor tobifemoral graft traversing a large infrarenal abdominal aortic aneurysm. Although this examination is not tailored for graft evaluation, there is no obvious graft leak. 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 Prostatomegaly. Soft Tissues: Soft tissues and body wall unremarkable. Bones: No acute osseous finding. Uncomplicated appearing, partially visualized left hip arthroplasty hardware. IMPRESSION: Mild interstitial edema. Mild esophagitis/gastritis. Cystitis versus urinary bladder wall thickening from outlet obstruction. No other acute abdominal pelvic process detected. Chronic and incidental findings detailed above. Reviewed, dictated and finalized at location K.
--- NOTE | ~2023-07-17 | CT_ITS ---
EXAMINATION: CT brain wo con DATE: 07/17/2023 20:38 INDICATION: confusion, weakness . TECHNIQUE: Computed tomography (CT) of the head was performed without intravenous contrast. The mA wa s adjusted according to patient size. Iterative reconstruction technique was employed. The dose-lengt h product was 605.33 mGy-cm. COMPARISON: 10/26/2020. FINDINGS: No acute intracranial hemorrhage or extra-axial fluid collection. No hydrocephalus, mass, or herniation. No acute ischemic infarct. Unremarkable dural venous sinus attenuation. No acute osseous abnormality. The aerated spaces are clear. Moderate atrophy and chronic white matter change. Atherosclerotic intracranial calcification. Left le ns replacement. IMPRESSION: No acute intracranial process. Reviewed, dictated and finalized at location K.
--- NOTE | ~2023-07-17 | XR_ITS ---
EXAMINATION: XR chest 1V portable Exam Date/Time: 07/17/2023 19:50 CDT HISTORY: confusion, weakness X 1 DAY Comparison: 10/28/2020. RESULT: Lines, tubes, and devices: Intact sternotomy wires. Mediastinal surgical clips. Lungs and pleura: Moderate diffuse reticular opacities and indistinct vascular margins. No pneumotho rax. No large effusion. No focal consolidation. Cardiomediastinal silhouette: Stable. Other: No acute osseous or upper abdominal finding. IMPRESSION: Interstitial pulmonary edema. Infection is not excluded. Reviewed, dictated and finalized at location K.
--- NOTE | 2023-07-17 19:18 | ECG_ITS ---
Measurements Intervals [place] Rate: 115 P: 29 [place]: 203 QRS: 5 QRSD: 104 T: 37 QT: 317 QTc: 439 Interpretive Statements SINUS TACHYCARDIA WITH OCCASIONAL VENTRICULAR PREMATURE COMPLEXES NONSPECIFIC INTRAVENTRICULAR CONDUCTION DELAY POSSIBLE LEFT ATRIAL ENLARGEMENT [-0.1mV P WAVE IN V1/V2] ANTEROSEPTAL MYOCARDIAL INFARCTION [40+ ms Q WAVE IN V1-V4], OLD POSSIBLE PREVIOUS INFERIOR MT COMPARED TO ECG 10/26/2020 19:49:25 NO SIGNIFICANT CHANGE Electronically Signed On 07-18-2023 13:10:52 CDT by Russ Abad M.D.
--- NOTE | 2023-07-17 19:29 | ED.GENADULT ---
HPI - General Adult General Chief complaint: Weakness Stated complaint: WEAKNESS Time Seen by Provider: 07/17/23 19:18 Source: patient, family, EMS and old records reviewed Mode of arrival: EMS Limitations: clinical condition History of Present Illness HPI narrative: Patient is a 72-year-old male who presents to the ED via EMS with report of weakness. Per EMS report, they were called out by patient's daughter as patient was weak and unable to even pull up his pants after using the restroom. Patient appeared confused per family. Patient alert and oriented x3 upon my evaluation, though does appear confused about why he is here. He denies any acute complaints. He denies pain. He denies chest pain, difficulty breathing. He denies any recent cough or cold symptoms. Patient noted to be febrile upon arrival. Daughter at bedside requested that patient be tested for COVID-19. She also reports patient had 1 episode of NBNB emesis earlier today and urinated on himself, which is not typical for him. Patient denies any current nausea or abdominal pain. Related Data Home Medications Medication Instructions Recorded Confirmed atorvastatin 20 mg tablet 20 mg HS 10/26/20 02/21/22 losartan 25 mg tablet 25 mg DAILY 10/26/20 02/21/22 metoprolol tartrate 25 mg tablet 25 mg BID 10/26/20 02/21/22 aspirin 81 mg tablet,delayed 81 mg PO DAILY 10/27/20 02/21/22 release (Adult Aspirin Regimen) Allergies Allergy/AdvReac Type Severity Reaction Status Date / Time No Known Allergies Allergy Mild Verified 10/28/20 17:15 Review of Systems Review of Systems: CONSTITUTIONAL: See HPI. ENT: Denies rhinorrhea, congestion, sore throat. CARDIOVASCULAR: Denies chest pain, palpitations, or edema. RESPIRATORY: Denies cough or dyspnea. GASTROINTESTINAL: See HPI. MUSCULOSKELETAL: Denies back pain, joint pain, or myalgia. NEUROLOGIC: See HPI. ROS unobtainable: Yes unobtainable due to medical condition PMFSH Past Medical History Medical History Coronary artery disease GI bleed Heart attack Hyperlipidemia Hypertension Ruptured abdominal aortic aneurysm TIA (transient ischemic attack) Surgical History Surgical History Hx of CABG Social History Social History Smoking packs per day: 1 Smoking cigarettes per day: 20.0 Years smoked: 15 Smoking pack-years: 15.00 Smoking status: Former smoker Tobacco type: cigarettes Alcohol intake: current Drinks per week: 3 Substance use: never Substance use type: does not use Living arrangements: with family Gender identity (if verbalized by the patient): Male Spiritual care concerns: No Exam Narrative: GENERAL: Mildly ill appearing, obese with BMI of 31.8, non-toxic, in no acute distress. HEAD: Normocephalic, atraumatic. ENT: MMs dry. NECK: Supple. No adenopathy, no masses. RESPIRATORY: Airway patent, respirations nonlabored. Coarse breath sounds in bases bilaterally. No significant focal lung sounds. CARDIOVASCULAR: Tachycardic with regular rhythm without murmurs, rubs, or gallops. Peripheral pulses 2+ and equal bilaterally. ABDOMINAL: Soft, no focal tenderness throughout abdomen, nondistended, no hepatosplenomegaly. Normoactive BS. Periumbilical hernia, easily reducible, nontender. MUSCULOSKELETAL: Moves all extremities. Strength/ROM intact without gross deformities. SKIN: Warm, dry, flushed appearing. No rashes. NEURO: A&O X3. Able to answer orientation questions, but confused about why he is in the ED and story of events. Speech clear. Cranial nerves II-XII grossly intact. No ataxic movements. Moves all extremities equally. No focal deficits. PSYCHIATRIC: Intermittently confused. Normal interaction. Course Vital Signs Vital signs: Vital Signs Temperature 101.1 F H 07/17/23 19:13 Pul
[2023-07-17 19:55] LABS: Basophils Absolute Auto 0.1 K/mm3 (0.0-0.1); Basophils Percent Auto 0.6 % (0.2-1.2); Eosinophils Percent Auto 0.2 % (0-4.4); Hematocrit 44.1 % (42.0-52.0); Hemoglobin 14.7 g/dL (14.0-18.0); Immature Granulocyte Percent A 1.1 % (0-0.5); Lymphocytes Absolute Auto 0.42 K/mm3 (0.9-3.2); Lymphocytes Percent Auto 4.5 % (18.3-44.2); Mean Corpuscular HGB Conc 33.3 g/dl (32-36); Mean Corpuscular Hemoglobin 31.7 pg (26-34); Mean Corpuscular Volume 95.2 fl (80-100); Mean Platelet Volume 12.1 fl (7.4-10.4); Monocytes Absolute Auto 0.8 K/mm3 (0.1-0.6); Monocytes Percent Auto 8.5 % (2.6-8.5); Neutrophils Percent Auto 85.1 % (45.5-73.1); Platelet Count Result 129 k/mm3 (150-375); Red Blood Count 4.63 M/mm3 (4.6-6.20); Red Cell Distribution Width 14.6 % (11.5-14.5); White Blood Count 9.4 K/mm3 (4.5-10.0)
[2023-07-17] MEDS: ACETAMINOPHEN 500 MG TABLET 1000 MG PO (19:58)
[2023-07-17] MEDS: SODIUM CHLORIDE 0.9% IV 1,000 ML 999 ML IV CONT (19:58)
[2023-07-17 20:07] LABS: Alanine Aminotransferase 33 U/L (6-50); Albumin Level 4.6 g/dL (3.5-5.1); Alkaline Phosphatase 110 U/L (38-126); Anion Gap 8 mmol/L (8-16); Aspartate Amino Transferase 34 U/L (17-59); Bilirubin,Total 1.7 mg/dL (0.2-1.3); Blood Urea Nitrogen 12 mg/dL (9-20); Calcium 9.5 mg/dL (8.4-10.2); Carbon Dioxide 25 mmol/L (22-30); Chloride 98 mmol/L (98-107); Estimated CRCL calculation 81 ml/min; Estimated Glomerular Filt Rate > 60; Glucose 153 mg/dL (65-110); Magnesium 2.1 mg/dL (1.6-2.3); Potassium 3.9 mmol/L (3.4-5.0); Sodium 131 mmol/L (137-145)
[2023-07-17 20:08] LABS: Lactic Acid Reflex 2.5 mmol/L (0.7-2.0); Partial Thromboplastin Time 36.5 SECONDS (22.3-36.8); Prothrombin Time 13.8 Seconds (11.1-14.7)
[2023-07-17 20:18] LABS: NT Pro B Type Natriuretic Pept 1260 pg/mL (19.9-100); Troponin I < 0.012 ng/mL (0.000-0.034)
[2023-07-17 20:30] LABS: Influenza A QL RT-PCR Negative (Negative); Influenza B QL RT-PCR Negative (Negative); RSV RNA, RT-PCR Negative (Negative); SARS-CoV-2 RNA PCR Positive (Negative)
[2023-07-17 21:25] LABS: Appearance Urine Clear (Clear); Bacteria Urine None Seen /hpf; Bilirubin Urine Negative (Negative); Blood Urine Negative (Negative); Color Urine Dark Yellow (Yellow); Glucose Urine UA Negative (Negative); Ketones Urine Trace mg/dL (Negative); Leukocyte Esterase Ur Negative LEU/UL (Negative); Need Manual Microscopic Reviewed; Nitrate Urine Negative (Negative); Non Pathogenic Casts 0-2; Protein Urine 1+ mg/dL (Negative); RBC Urine 0-2 /hpf (0-2); Squamous Epithelial Cell Urine None seen /hpf (Few); WBC Urine 0-5 /hpf
[2023-07-17 21:26] LABS: Add Urine Microscopic? YES
[2023-07-17] MEDS: REMDESIVIR 200 MG/NS 250 ML 200 MG/250 ML BAG 250 MG IVPB (22:42)
[2023-07-17 22:52] LABS: Reflex Lactic Acid Yes or No Add Lactic
--- NOTE | 2023-07-17 23:09 | ADMGEN ---
This patient, Sharad Mcclain, was admitted to IMU Room 213-01. Patient/family oriented to hospital policies and general routines including ID bracelet, bed and alarms, visiting hours, pain management, procedures, bathroom and other care routines, personal items, smoking policy, room service/diet, and visiting hours. Information on how to activate the Rapid Response Team has been discussed. Patient/Family are encouraged to report perceived risks to care and to ask questions if they do not understand what they are told or what they should do.
--- NOTE | 2023-07-17 23:40 | PM.IMHP ---
H&P: HPI History of Present Illness Date/Time: 07/17/23 23:40 Chief Complaint: Weakness Narrative: This is a 72-year-old male with a past medical history of AAA, CABG surgery, hypertension, hyperlipidemia, and limited issues with illness, who is presenting with a 1 day history of weakness, malaise, nausea and vomiting after eating a pizza this morning. The patient's daughter noticed the patient was weak and unable to pull up his pants after using the restroom. The patient urinated on himself at home. In the ER the patient is noted to be x3, though he is confused as to why he is here. He denies any acute complaints. He is noted to be febrile and occasionally having a productive cough. The daughter at the bedside requested the patient be tested for COVID-19. The patient was positive for COVID-19. I spoke with the ER PA and recommended remdesivir as well as treatment for septic shock with appreciation for pulmonary edema from over hydration. The patient received 1 dose of remdesivir with scheduled remdesivir ordered. The patient got 1 L normal saline with continuous IV NS running. When I spoke with the patient, he gave me the same story. He denies any sick contacts. He denies any travel history. He lives with his daughter. Review of Systems Review of Systems: Negative other than what was specified in the HPI [facility] Past Medical History Medical History Coronary artery disease GI bleed Heart attack Hyperlipidemia Hypertension Ruptured abdominal aortic aneurysm TIA (transient ischemic attack) Surgical History Surgical History Hx of CABG Family History Family History (Updated 07/17/23 @ 23:21 by Misael Pappas RN) Father Acute myocardial infarction Mother Unknown family medical history Social History Social History Smoking packs per day: 1 Smoking cigarettes per day: 20.0 Years smoked: 15 Smoking pack-years: 15.00 Smoking status: Never smoker Tobacco type: cigarettes Alcohol intake: current Drinks per week: 8 Substance use: never Substance use type: does not use Lack of Transportation: No Lack of Food: Never True Current Housing: I Have Housing Concerned About Future Housing: No Difficulty Paying Gas/Electric Bills: No Difficulty Paying for Meds: No Currently Unemployed: No Education: Bachelor's Degree Difficulty w/ Childcare or Family Care: No Living arrangements: with family Gender identity (if verbalized by the patient): Male Spiritual care concerns: Yes (Patient is [employer]) Meds Home Medications and Allergies Home Medications Medication Instructions Recorded Confirmed Type atorvastatin 20 mg tablet 20 mg HS 10/26/20 07/17/23 History losartan 25 mg tablet 25 mg DAILY 10/26/20 07/17/23 History metoprolol tartrate 25 mg tablet 25 mg BID 10/26/20 07/17/23 History aspirin 81 mg tablet,delayed 81 mg PO DAILY 10/27/20 07/17/23 History release (Adult Aspirin Regimen) Allergies Allergy/AdvReac Type Severity Reaction Status Date / Time No Known Allergies Allergy Mild Verified 10/28/20 17:15 Vital Signs Vital Signs - 24 hr 07/17/23 19:13 07/17/23 19:46 07/17/23 19:53 Temperature 101.1 F H Pulse Rate 112 H 113 H 107 H Respiratory Rate 21 H 21 H Blood Pressure 129/78 Pulse Oximetry 96 96 Oxygen Delivery Room Air 07/17/23 20:57 07/17/23 22:14 07/17/23 22:47 Temperature 98.3 F Pulse Rate 105 H 103 H 99 Respiratory Rate 22 H 23 H 21 H Blood Pressure 132/81 116/79 107/81 Pulse Oximetry 94 93 94 Oxygen Delivery Exam Narrative: Gen: HENT: Eyes: Neck: Lungs: CV: Abd: Ext: Neuro: Psych: H&P: Results Labs Labs: Short CBC 07/17/23 Range/Units 19:46 WBC 9.4 (4.5-10.0) K/mm3 Hgb 14.7 (14.0-18.0) g/d
[2023-07-18] VITALS (13 sets, daily range): BP systolic 112–153; BP diastolic 60–92; PULSE 68–112; RESP 20–22; TEMP 36.1–37.2; O2SAT 93–100
[2023-07-18] MEDS: SODIUM CHLORIDE 0.9% IV 1,000 ML 100 ML IV CONT
[2023-07-18 00:16] LABS: Lactic Acid 1.4 mmol/L (0.7-2.0)
[2023-07-18 00:36] LABS: Alanine Aminotransferase 27 U/L (6-50); Estimated CRCL calculation 81 ml/min; Estimated Glomerular Filt Rate > 60
[2023-07-18 00:43] LABS: INR 1.1; Prothrombin Time 14.5 Seconds (11.1-14.7)
[2023-07-18 05:16] LABS: Alanine Aminotransferase 30 U/L (6-50); Estimated CRCL calculation 73 ml/min; Estimated Glomerular Filt Rate > 60
--- NOTE | 2023-07-18 06:00 | ECHO_ITS ---
Patient Info Name: Sharad Mcclain Age: 72 years : 1950 Gender: Male Ht: 69 in Wt: 216 lbs BSA: 2.21 m2 HR: 106 bpm BP: 128 / 92 mmHg Heart Rhythm: Sinus Rhythm Technical Quality: Good Exam Date: 07/18/2023 9:36 AM Exam Location: [facility] Pul[facility] Patient Status: Inpatient Admit Date: 07/17/2023 Staff Ordering Physician: Carmelina Hughes PA-C Technical Trainer: Mariel Truong RDCS Attending Provider: Ananda Denis MD Referring Physician: Saul HENRIQUEZ; Exam Type: CA echo doppler color flow Study Info Indications - covid19, elevated troponin, pul edema Complete two-dimensional, color flow and Doppler transthoracic echocardiogram is performed. Summary 1. Complete two-dimensional, color flow and Doppler transthoracic echocardiogram is performed. 2. Normal left and right ventricular size and systolic function. 3. Concentric LVH. 4. Mild mitral annular calcification. 5. Mild sclerosis but not stenotic aortic valve. Left Ventricle Left ventricular chamber dimension is normal. Left ventricular systolic function is normal, estimated at 50-55%. There is mild concentric increased left ventricular wall thickness. The left ventricular diastolic function is grade I diastolic dysfunction. Right Ventricle Right ventricular chamber dimension is normal. Left Atria Left atrial chamber dimension is mildly enlarged. Right Atria Right atrial chamber dimension is normal. Aortic Valve The aortic valve is trileaflet. There is mild aortic valve sclerosis. Pulmonic Valve The pulmonic valve is not well visualized. There is trace pulmonic regurgitation. Mitral Valve The mitral valve has normal leaflets. The mitral valve annulus is mildly calcified. Tricuspid Valve The tricuspid valve leaflets are normal. Pericardium/Pleural The pericardium appears normal. Aorta The aortic root size at the sinus of Valsalva is normal. Left Ventricular Outflow Tract Name Value Normal LVOT 2D LVOT Diameter 2.2 cm LVOT Doppler LVOT Peak Gradient 3 mmHg LVOT Mean Gradient 1 mmHg LVOT VTI 18 cm LVOT VTI/AV VTI Ratio 0.6 LVOT Stroke Volume 69 ml LVOT CO 5.8 l/min LVOT CI 2.6 l/min/m2 Pulmonic Valve Name Value Normal RVOT Doppler RVOT Peak Gradient 2 mmHg PV Doppler PV Peak Gradient 5 mmHg Mitral Valve Name Value Normal MV Doppler MV Decel [place] 269 cm/s2
[2023-07-18 06:49] LABS: INR 1.1; Prothrombin Time 14.8 Seconds (11.1-14.7)
[2023-07-18 08:56] LABS: Alanine Aminotransferase 30 U/L (6-50); Albumin Level 3.6 g/dL (3.5-5.1); Alkaline Phosphatase 92 U/L (38-126); Anion Gap 4 mmol/L (8-16); Aspartate Amino Transferase 36 U/L (17-59); Bilirubin,Total 0.9 mg/dL (0.2-1.3); Blood Urea Nitrogen 13 mg/dL (9-20); Calcium 8.6 mg/dL (8.4-10.2); Carbon Dioxide 30 mmol/L (22-30); Chloride 99 mmol/L (98-107); Estimated CRCL calculation 73 ml/min; Estimated Glomerular Filt Rate > 60; Glucose 128 mg/dL (65-110); Potassium 3.6 mmol/L (3.4-5.0); Sodium 133 mmol/L (137-145)
[2023-07-18] MEDS: METOPROLOL TARTRATE 25 MG TABLET BY MOUTH ×2 (10:20→21:06)
[2023-07-18] MEDS: ASPIRIN 81 MG ENTERIC TABLET PO (10:21)
[2023-07-18] MEDS: DEXAMETHASONE 2 MG TABLET 6 MG PO (10:21)
[2023-07-18] MEDS: ENOXAPARIN 40 MG/0.4 ML SYRINGE SUB-Q (10:22)
[2023-07-18] MEDS: LOSARTAN POTASSIUM 25 MG TABLET BY MOUTH (10:22)
--- NOTE | 2023-07-18 15:45 | PM.IMPN ---
Progress Note: A&P Assessment and Plan (1) Pneumonia due to COVID-19 virus: Code(s): U07.1 - COVID-19; J12.82 - Pneumonia due to coronavirus disease 2019 Status: Acute Assessment and Plan: Patient here for weakness and found to be positive for COVID. CXR showing interstital pulmonary edema. He was found to be hypoxic and was started on Remdesivir and Dexamethasone. Lactic acid 2.5 and normal on repeat. Not on abx. Follow. Monitor off O2. Repeat CXR in the morning. (2) Sepsis due to COVID-19: Code(s): U07.1 - COVID-19; A41.89 - Other specified sepsis Status: Acute Assessment and Plan: As above (3) Acute confusion: Code(s): R41.0 - Disorientation, unspecified Status: Acute Assessment and Plan: Confused on admisison. Still mildly confusd. Head CT showing no acute findings. Likely due to COVID infection. Improving. (4) Hyponatremia: Code(s): E87.1 - Hypo-osmolality and hyponatremia Status: Acute Assessment and Plan: Na 131 on admission. Likely from covid and/or dehydration from sepsis. Na better. Diet started. Advance diet as tolerated. Decrease fluid rate. (5) Elevated brain natriuretic peptide (BNP) level: Code(s): R79.89 - Other specified abnormal findings of blood chemistry Status: Acute Assessment and Plan: Don't diurese pt until pt is no longer septic. Follow (6) Esophagitis: Code(s): K20.90 - Esophagitis, unspecified without bleeding Status: Acute Assessment and Plan: Mild esophagitis/gastritis by CT scan. Add PPI. Subjective Date/time seen: 07/18/23 15:45 Interval history: 72yo male with CAD, HTN and HLD here for weakness, malaise and n/v. Alert and mildly confused. He is vaccinated against COVID. He did have n/v over night. Has a nonproductive cough. No CP or SOb. Exam Narrative: Tm 101.1 98.5 153/86 81 22 97% ra Gen - NARD Chest - few basilar crackles o/w clear. nml RR CV - RRR S1/S2. Tele showing no significant dysrhythmias Abd - Soft, NT/ND, Positive BS. umbilical hernia Ext - No pedal edema Neuro - Alert and oriented x3 (not location). Psych - Nml mood and affect Skin - Warm and dry Objective Data Vital Signs Vital Signs: Vital Signs - 24 hr 07/17/23 19:13 07/17/23 19:46 07/17/23 19:53 Temperature 101.1 F H Pulse Rate 112 H 113 H 107 H Respiratory Rate 21 H 21 H Blood Pressure 129/78 Pulse Oximetry 96 96 Oxygen Delivery Room Air Oxygen Flow Rate 07/17/23 20:57 07/17/23 22:14 07/17/23 22:47 Temperature 98.3 F Pulse Rate 105 H 103 H 99 Respiratory Rate 22 H 23 H 21 H Blood Pressure 132/81 116/79 107/81 Pulse Oximetry 94 93 94 Oxygen Delivery Oxygen Flow Rate 07/17/23 23:00 07/18/23 00:00 07/18/23 04:00 Temperature 97.3 F L 98.9 F Pulse Rate 95 95 112 H Respiratory Rate 20 20 20 Blood Pressure 115/70 128/92 H Pulse Oximetry 97 97 100 Oxygen Delivery Nasal Cannula Oxygen Flow Rate 2 07/18/23 00:00 07/18/23 02:00 07/18/23 04:00 Temperature Pulse Rate 92 90 112 H Respiratory Rate 20 Blood Pressure Pulse Oximetry 100 Oxygen Delivery Nasal Cannula Oxygen Flow Rate 2 07/18/23 06:00 07/18/23 08:00 07/18/23 10:20 Temperature 98.4 F Pulse Rate 106 H 99 99 Respiratory Rate 22 H Blood Pressure 142/82 H Pulse Oximetry 100 Oxygen Delivery Oxygen Flow Rate 07/18/23 08:00 07/18/23 10:00 07/18/23 08:00 Temperature Pulse Rate 100 94 99 Respiratory Rate 22 H Blood Pressure Pulse Oximetry 100 Oxygen Delivery Room Air Oxygen Flow Rate 07/18/23 12:00 07/18/23 12:00 07/18/23 12:00 Temperature 98.5 F Pulse Rate 79 80 82 Respiratory Rate 22 H 22 H Blood Pressure 153/86 H Pulse Oximetry 95 93 Oxygen Delivery Room Air Oxygen Flow Rate 07/18/23 14:00 Temperature Pulse Rate 81 Respiratory Rate Blood Pressure Pulse Oximetry Oxygen D
[2023-07-18] MEDS: ATORVASTATIN 20 MG TABLET BY MOUTH (21:06)
[2023-07-18] MEDS: PANTOPRAZOLE SODIUM IV 40 MG VIAL IV PUSH (21:09)
[2023-07-18] MEDS: REMDESIVIR 100 MG/NS 250 ML 100 MG/250 ML BAG 250 MG IVPB (21:54)
[2023-07-18] MEDS: SODIUM CHLORIDE 0.9% IV 1,000 ML 50 ML IV CONT (21:55)
[2023-07-19] VITALS: BP 105/60; PULSE 65; RESP 20; TEMP 36.3; O2SAT 97
[2023-07-19 06:38] LABS: Basophils Percent Auto 0.6 % (0.2-1.2); Hematocrit 39.4 % (42.0-52.0); Hemoglobin 12.8 g/dL (14.0-18.0); Immature Granulocyte Absolute 0.07 K/mm3 (0.00-0.031); Immature Granulocyte Percent A 1.3 % (0-0.5); Lymphocytes Absolute Auto 0.63 K/mm3 (0.9-3.2); Lymphocytes Percent Auto 11.8 % (18.3-44.2); Mean Corpuscular HGB Conc 32.5 g/dl (32-36); Mean Corpuscular Hemoglobin 31.5 pg (26-34); Mean Platelet Volume 12.3 fl (7.4-10.4); Monocytes Absolute Auto 0.7 K/mm3 (0.1-0.6); Monocytes Percent Auto 13.4 % (2.6-8.5); Neutrophils Absolute Auto 3.9 K/mm3 (1.3-6.7); Neutrophils Percent Auto 72.9 % (45.5-73.1); Platelet Count Result 120 k/mm3 (150-375); Red Blood Count 4.06 M/mm3 (4.6-6.20); Red Cell Distribution Width 14.6 % (11.5-14.5); White Blood Count 5.4 K/mm3 (4.5-10.0)
[2023-07-19 06:50] LABS: INR 1.1; Prothrombin Time 14.7 Seconds (11.1-14.7)
[2023-07-19 06:51] LABS: Alanine Aminotransferase 28 U/L (6-50); Estimated CRCL calculation 92 ml/min; Estimated Glomerular Filt Rate > 60
[2023-07-19 06:55] LABS: Albumin Level 3.8 g/dL (3.5-5.1); Anion Gap 7 mmol/L (8-16); Blood Urea Nitrogen 15 mg/dL (9-20); Calcium 8.3 mg/dL (8.4-10.2); Carbon Dioxide 26 mmol/L (22-30); Chloride 100 mmol/L (98-107); Estimated CRCL calculation 92 ml/min; Estimated Glomerular Filt Rate > 60; Glucose 118 mg/dL (65-110); Magnesium 2.2 mg/dL (1.6-2.3); Phosphorus 3.1 mg/dL (2.5-4.5); Potassium 3.8 mmol/L (3.4-5.0); Sodium 133 mmol/L (137-145)
[2023-07-19 11:12] VITALS: BP 119/69; PULSE 75; O2SAT 98
[2023-07-19 11:14] VITALS: PULSE 75
[2023-07-19] MEDS: DEXAMETHASONE 2 MG TABLET 6 MG PO (11:14)
[2023-07-19] MEDS: METOPROLOL TARTRATE 25 MG TABLET BY MOUTH ×2 (11:14→20:53)
[2023-07-19] MEDS: PANTOPRAZOLE SODIUM IV 40 MG VIAL IV PUSH ×2 (11:15→20:53)
[2023-07-19] MEDS: LOSARTAN POTASSIUM 25 MG TABLET BY MOUTH (11:15)
[2023-07-19] MEDS: ASPIRIN 81 MG ENTERIC TABLET PO (11:15)
[2023-07-19] MEDS: ENOXAPARIN 40 MG/0.4 ML SYRINGE SUB-Q (11:15)
--- NOTE | 2023-07-19 12:34 | PM.IMPN ---
Progress Note: A&P Assessment and Plan (1) Pneumonia due to COVID-19 virus: Code(s): U07.1 - COVID-19; J12.82 - Pneumonia due to coronavirus disease 2019 Status: Acute Assessment and Plan: Patient here for weakness and found to be positive for COVID. CXR showing interstital pulmonary edema. He was found to be hypoxic and was started on Remdesivir and Dexamethasone. Lactic acid 2.5 and normal on repeat. Not on abx. Able to be weaned off O2. Repeat CXR showing persistent interstitial pattern. Monitor off O2. Continue steroids and Remdesivir while hospitalized. Continue supportive care. PT/OT (2) Sepsis due to COVID-19: Code(s): U07.1 - COVID-19; A41.89 - Other specified sepsis Status: Acute Assessment and Plan: As above (3) Acute confusion: Code(s): R41.0 - Disorientation, unspecified Status: Acute Assessment and Plan: Confused on admisison. Head CT showing no acute findings. Likely due to COVID infection. Confusion resolved. (4) Hyponatremia: Code(s): E87.1 - Hypo-osmolality and hyponatremia Status: Acute Assessment and Plan: Na 131 on admission. Likely from covid and/or dehydration from sepsis and/or nausea. Na better. Diet started. Advance diet as tolerated. Stop IV fluids (5) Elevated brain natriuretic peptide (BNP) level: Code(s): R79.89 - Other specified abnormal findings of blood chemistry Status: Acute Assessment and Plan: Noted. No evidence of fluid overload. Suspect CXR findings related to COVID. Follow (6) Esophagitis: Code(s): K20.90 - Esophagitis, unspecified without bleeding Status: Acute Assessment and Plan: Mild esophagitis/gastritis by CT scan. Continue PPI. Plan Thrombocytopenia -mild. [place] related to the viral illness. Subjective Date/time seen: 07/19/23 12:34 Interval history: 72yo male with CAD, HTN and HLD here for weakness, malaise and n/v. Continues to have a nonproductive cough. No CP or SOB. nausea last night but better today. Diet not advanced yesterday due to nausea. Tolerating clears and is requesting solid foods Exam Narrative: AF 97.4 119/69 75 20 98% ra Gen - NARD HEENT - flushed face Chest - CTA bilaterally, nml RR CV - RRR S1/S2 Abd - Soft, NT/ND, Positive BS. umbilical hernia Ext - No pedal edema Neuro - Alert and oriented x4 Psych - Nml mood and affect Skin - Warm and dry Objective Data Vital Signs Vital Signs: Vital Signs - 24 hr 07/18/23 14:00 07/18/23 16:00 07/18/23 16:00 Temperature Pulse Rate 81 81 Respiratory Rate Blood Pressure Pulse Oximetry 97 Oxygen Delivery Room Air 07/18/23 16:00 07/18/23 18:00 07/18/23 20:00 Temperature 98.7 F 97.8 F Pulse Rate 98 76 78 Respiratory Rate 20 20 Blood Pressure 138/80 125/75 Pulse Oximetry 95 97 Oxygen Delivery 07/18/23 20:00 07/18/23 20:00 07/18/23 22:30 Temperature Pulse Rate 78 77 Respiratory Rate 20 Blood Pressure Pulse Oximetry 97 Oxygen Delivery Room Air Room Air 07/18/23 22:25 07/19/23 00:00 07/19/23 11:12 Temperature 97 F L 97.4 F L Pulse Rate 68 65 75 Respiratory Rate 20 20 Blood Pressure 112/60 105/60 119/69 Pulse Oximetry 97 97 98 Oxygen Delivery 07/19/23 11:14 Temperature Pulse Rate 75 Respiratory Rate Blood Pressure Pulse Oximetry Oxygen Delivery Intake/Output Intake/Output: Intake & Output 07/16/23 07/17/23 07/18/23 07/19/23 23:59 23:59 23:59 23:59 Intake Total 1000 1920 650 Output Total 450 1000 Balance 1000 1470 -350 Meds/Results Medications: Active Medications Generic Name Dose Route Start Last Admin Trade Name Freq PRN Reason Stop Dose Admin Acetaminophen 650 mg 07/17/23 21:38 Acetaminophen 325 Mg Tablet PO Q4H PRN Mild Pain (1-3) or Fever Aspirin 81 mg 07/18/23 09:00 07/19/23 11:15 Aspirin 81 Mg Enteric Tablet PO 81 mg DAILY PRISCA
[2023-07-19 14:00] VITALS: BP 109/59; PULSE 68; RESP 16; TEMP 35.9; O2SAT 100
[2023-07-19 20:53] VITALS: PULSE 72
[2023-07-19] MEDS: ATORVASTATIN 20 MG TABLET BY MOUTH (20:53)
[2023-07-19] MEDS: REMDESIVIR 100 MG/NS 250 ML 100 MG/250 ML BAG 250 MG IVPB (21:34)
[2023-07-19 23:08] VITALS: BP 137/78; PULSE 87; RESP 18; TEMP 35.9; O2SAT 99
[2023-07-20 06:03] VITALS: BP 127/79; PULSE 83; RESP 16; TEMP 35.7; O2SAT 95
[2023-07-20 06:21] LABS: INR 1.1; Prothrombin Time 14.8 Seconds (11.1-14.7)
[2023-07-20 06:26] LABS: Alanine Aminotransferase 27 U/L (6-50); Estimated CRCL calculation 91 ml/min; Estimated Glomerular Filt Rate > 60
[2023-07-20] MEDS: PANTOPRAZOLE SODIUM IV 40 MG VIAL IV PUSH (08:48)
[2023-07-20] MEDS: LOSARTAN POTASSIUM 25 MG TABLET BY MOUTH (08:48)
[2023-07-20] MEDS: ACETAMINOPHEN 325 MG TABLET 650 MG PO (08:48)
[2023-07-20] MEDS: ENOXAPARIN 40 MG/0.4 ML SYRINGE SUB-Q (08:48)
[2023-07-20] MEDS: DEXAMETHASONE 2 MG TABLET 6 MG PO (08:48)
[2023-07-20] MEDS: ASPIRIN 81 MG ENTERIC TABLET PO (08:48)
[2023-07-20 08:49] VITALS: PULSE 77
[2023-07-20] MEDS: METOPROLOL TARTRATE 25 MG TABLET BY MOUTH (08:49)
--- NOTE | 2023-07-20 11:48 | PM.DS ---
DS: Admitting Diagnosis Discharge Date 07/20/23 Admitting Diagnosis Weakness DS: Discharge Diagnosis Discharge Diagnosis (1) Pneumonia due to COVID-19 virus: Code(s): U07.1 - COVID-19; J12.82 - Pneumonia due to coronavirus disease 2019 Status: Acute (2) Sepsis due to COVID-19: Code(s): U07.1 - COVID-19; A41.89 - Other specified sepsis Status: Acute (3) Acute confusion: Code(s): R41.0 - Disorientation, unspecified Status: Acute (4) Hyponatremia: Code(s): E87.1 - Hypo-osmolality and hyponatremia Status: Acute (5) Elevated brain natriuretic peptide (BNP) level: Code(s): R79.89 - Other specified abnormal findings of blood chemistry Status: Acute (6) Esophagitis: Code(s): K20.90 - Esophagitis, unspecified without bleeding Status: Acute DS: Summary Hospital Course Reason for hospitalization: 72yo male with CAD, HTN and HLD here for weakness, malaise and n/v. Please see H&P for details. Hospital Course: Patient here for weakness and found to be positive for COVID. CXR showing interstital pulmonary edema. He was found to be hypoxic and was started on Remdesivir and Dexamethasone. Lactic acid 2.5 and normal on repeat. We were able to wean off O2 quickly. Repeat CXR showing persistent interstitial pattern. He worked with PT/OT who felt patient was independent. He was confused on admission. Head CT showing no acute findings. Likely due to COVID infection. Confusion resolved. Na 131 on admission. Likely from COVID and/or dehydration from sepsis and/or nausea. Diet started. Sodium improved. BNP was elevated but not felt to have CHF. Echo showing EF 50-55% with Grade I diastolic dysfunction. Incidental finding of mild esophagitis/gastritis by CT scan. He was treated with PPI. Also with mild thrombocytopenia felt related to the viral illness. He had clinical improvement. Mental status normalized. Still with cough productive of clear sputum. Status at Discharge Cognitive/behavioral status at discharge: stable Time Spent with Patient Time attestation: Total time spent providing and/or coordinating discharge services:35 minutes Time spent: Greater than 30 minutes Exam Narrative: AF 96.3 127/79 77 16 95% ra Gen - NARD sitting up in a chair Chest - few basilar rhonchi. nml RR CV - RRR S1/S2 Abd - Soft, NT/ND, Positive BS. umbilical hernia Ext - No pedal edema Neuro - Alert and oriented x4 Psych - Nml mood and affect Skin - Warm and dry DS: Data Data Completed and Pending Labs on day of discharge: Labs from last 24 hours 07/20/23 05:49 PT 14.8 H INR 1.1 Creatinine 0.70 Estim Creat Clear Calc 91 Estimated GFR > 60 ALT 27 Preliminary micro results at discharge 07/17/23 19:46 Blood Culture - Preliminary Blood 07/17/23 19:47 Blood Culture - Preliminary Blood Discharge Plan Discharge Attending physician on discharge: Gibson Chatterjee Consulting providers: Carmelina Hughes Discharging Clinician: Gibson Chatterjee Anticipated Discharge Date/Time: 07/20/23 11:57 Patient Disposition: Home, Self-Care Activity: as tolerated Diet: heart healthy Discharge Instructions: Please remain in isolation through 07/21 then wear face covering in public for the next 5 days. Avoid large gathering and practice social distance. Walk with walker. Take precautions to avoid falls. Rise slowly from a lying or sitting position. Pause before standing or walking. Contact your doctor or call 911 and come to the Emergency Room if you have fevers, worsening cough or other worrisome symptoms. Avoid NSAIDs (ibuprofen, naproxen, Aleve). Tylenol is safe to take. Follow-up with your primary care provider in 1-2 weeks. Please call for appointment. Thank you for using [facility] for your health care needs. Patient Instructions: Antibiotic Form, Heart Failure (GEN), Coronary Artery Disease (GEN
[2023-07-20 14:21] VITALS: BP 112/72; PULSE 63; RESP 16; TEMP 36; O2SAT 98
== END 2023-07-20 14:27 | disposition home or self-care (01) | DRG 871 ==
LOC: ANHED 21:55 → ANHIMU 22:19 → ANH3MEDSUR 07-18 22:43
PROVIDERS: Admitting Provider Internal Medicine; Emergency Provider Physician Assistant; PCP Nurse Practitioner; Visit Provider Internal Medicine
DX: A41.89 Other specified sepsis (principal); J12.82 Pneumonia due to coronavirus disease 2019; U07.1 COVID-19; E87.1 Hypo-osmolality and hyponatremia; I10 Essential (primary) hypertension; I25.10 Atherosclerotic heart disease of native coronary artery without angina pectoris; E78.5 Hyperlipidemia, unspecified; K20.90 Esophagitis, unspecified without bleeding; I25.2 Old myocardial infarction; Z86.73 Personal history of transient ischemic attack (TIA), and cerebral infarction without residual deficits; Z79.82 Long term (current) use of aspirin; Z87.891 Personal history of nicotine dependence; Z95.1 Presence of aortocoronary bypass graft
CPT/HCPCS: 36415; 70450; 71045; 74177; 80053; 80069; 81001; 82565; 83605; 83735; 83880; 84443; 84460; 84484; 85025; 85610; 85730; 87040; 87637; 93005; 93306; 96360; 97161; 97165; 97535; 99285; A9270; C9113; J0248; J1650; J7030; J8540; Q9967

== ENCOUNTER 2025-07-26 09:30 | Outpatient (CLI) | payer MEDICARE, SELFPAY ==
--- NOTE | ~2025-07-26 | US_ITS ---
US abdomen limited INDICATION: Elevated bilirubin PROCEDURE: Realtime right upper abdominal ultrasound. COMPARISON: CT dated 07/17/2023 FINDINGS: The pancreas is normal without focal mass or pancreatic ductal dilation. Liver echotexture is diffusely increased consistent with fatty infiltration. There is normal directional flow in the portal vein. The gallbladder is normal without stones, gallbladder wall thickening or pericholecystic fluid. Common bile duct measures 3 mm. No sonographic Fernández's sign. IMPRESSION: 1: Fatty infiltration of the liver. Reviewed, dictated and finalized at location O.
--- OUTSIDE RECORDS SUMMARY | 2025-07-26 10:13 | XMS_ITS | Clinical Summary ---
Author Organization [facility] Address [address] [place] [address] Care Team Providers Care Client Care Coordinator Name Role Phone Alisha Sosa APRN-[facility] Primary Care Provi alexander Source Comments [facility],non-owned Affiliates and Associated Physician Practices is amultiple site organization consisting of ambulatory clinics and hospital sitesin [place], [place], [place] and [place]. This disclosure is being madepursuant to the Care Everywhere program and may not contain all information available regarding this patient. Last updated 18.[facility] Allergies No known active allergies Medications * Be aware that medications may not be up to date on this document. Alwaysverify current medications with the patient. aspirin (ASPIRIN) 81 MG tablet Take 81 mg by mouth once daily Active [place]-3 Fatty Acids (FISH OIL) 1000 MG capsule Take 1,000 mg by mouth Active metoprolol tartrate (LOPRESSOR) 25 MG tablet Take 1 tablet by mouth 2 times daily 180 tablet 3 12/07/2020 Active atorvastatin (Lipitor) 80 MG tablet Take 1 (one) tablet by mouth once daily 30 tablet 3 10/27/2024 Active clopidogrel (plaVIX) 75 MG tablet Take 1 (one) tablet by mouth once daily 30 tablet 3 10/27/2024 Active ezetimibe (Zetia) 10 MG tablet Take 1 (one) tablet by mouth once daily Active Active Problems Patient Care Coordination No te Formatting of this note migh t be different from the original. Cardiologitst - Dr. Kevin Foote Problem Noted Date Diagnosed Date Basilar artery stenosis 10/23/2024 Cerebrovascular accident (CV A) due to embolism of right middle cerebral artery 10/22/2024 Weakness 10/22/2024 Dysarthria 10/22/2024 Aphasia 10/22/2024 Facial droop 10/22/2024 Left-sided weakness 10/22/2024 Primary osteoarthritis of right knee 03/17/2020 Deep venous thrombosis of fe moral vein with thrombophlebitis 03/25/2019 Carotid stenosis, left 05/21/2017 Overview (05/21/2017): Overview: 06/05 L CEA 06/10 Carotid US - Left with mild dx; Right with moderate dx (50%) S/P CABG (coronary artery bypass graft) 01/08/20 17 Abdominal aneurysm, ruptured 05/17/2015 Overview (05/17/2015): Overview: 04/14 - Endovascular repair at [facility] H/O carotid endarterectomy 05/17/2015 Overview (12/04/2016): Overview: 06/05 L CEA 06/10 Carotid US - Left with mild dx; Right with moderate dx (50%) 11/16 Carotid US - Left with mild dx; Right with moderate dx (50-79%) HTN (hypertension) 05/17/2015 Mixed hyperlipidemia 05/17/2015 Coronary atherosclerosis of [place] coronary maru ry 05/17/2015 Overview (01/16/2018): Overview: 06/05 CAD/Cath/ACS - 100% LAD, 70% Ramus, 70% Cx/Om1, 100% RCA 06/05 CAD/CABG - SVG-LAD, SVG- RCA, SVG-Cx/Om 12/17 Stress Nuc - Apical and periinfarctional septal ischemia; EF - 65% 12/19 Stress MPI - Apical and periinfartional septal ischemia; EF - 49% - severe inferolateral and basal inferior ischemia 12/19 CAD/Cath - PB hypo with normal Lv function - 100% RCA; 100% LAD; 90% Cx - SVG patent to Cx/Om1, Om2 with tight lesion (not revasc with graft) - SVG patent to the PDA (PL occluded) - SVG to the LAD occluded ( confirmed by CTA) 12/19 PCI/LENORE Cx/Om2 Hyperlipidemia 05/17/2015 Resolved Problems Problem Noted Date Diagnosed Date Resolved Date Bruit of left carotid artery 05/21/2017 05/21/2017 Social History Tobacco Use Types Packs/Day Years Used Date Smoking Tobacco: Former Cigarettes Q uit: 12/02/1986 Smokeless Tobacco: Never Tobacco Cessation:Counseling Given: Not Answered Alcohol Use Standard Drinks/Week Comments Yes 1 (1 standard drink = 0.6 oz pur e alcohol) AUDIT-C Answer Date Recorded Q1: How often do you have a drink containing alcohol? Never 10/22/2024 Q2: How many drinks containi ng alcohol do you have on a typical day when you are drinking? Patient does not drink Q3: How often do you have si x or more drinks on one occasion? Never 10/22/2024 Overall Financial Resource Strain (CARDIA) Answe r Date Recorded How hard is it for you to pa y for the very basics like food, housing, medical care, and heating? Somewhat hard 10/24/2024 PHQ-2 Answer Date Recorded Patient Health Questionnaire-2 Score 0 10/27/2024 [facility] [place] [facility] - Occupational Stress Questionnaire Answer Date Recorded Do you feel stress - tense, restless, nervous, or anxious, or unable to sleep at night because your mind is troubled all the time - these days? Very much 10/24/2024 Hunger Vital Sign Answer Date Recorded Within the past 12 months, y ou worried that your food would run out before you got the money to buy more. Never true Within the past 12 months, t he food you bought just didn't last and you didn't have money to get more. Patient declined PRAPARE - Transportation Answer Date Re corded In the past 12 months, has l ack of transportation kept you from medical appointments or from getting medications? No 10/03 In the past 12 months, has l ack of transportation kept you from meetings, work, or from getting things needed for daily living? No 10/24/2024 Housing Stability Vital Sign Answer Gio e Recorded In the last 12 months, was t here a time when you were not able to pay the mortgage or rent on time? No 10/24/2024 In the past 12 months, how m any times have you moved where you were living? 0 10/24/2024 At any time in the past [address] [facility], were you homeless or living in a senior care (including now)? No 10/24/2024 Sex and Gender Information Value Date Recorded Sex Assigned at Not on file Legal Sex Male 4:11 PM CDT Gender Identity Not on file Sexual Orientation Not on file Last Filed Vital Signs Vital Sign Reading Time Taken Comments Blood Pressure 149/81 04/07/2025 9:46 AM CDT Pulse 61 04/07/2025 9:46 AM CDT Temperature 36.6 C (97.9 F) 10/27/2024 8:25 AM PHOTOENGRAVING APPRENTICE Respiratory Rate 12 04/07/2025 9:46 AM CDT Oxygen Saturation 99% 10/27/2024 8:25 AM PHOTOENGRAVING APPRENTICE Inhaled Oxygen Concentration - - Weight 84.8 kg (187 lb) 04/07/2025 9:46 AM CDT Height 172.7 cm (5' 8) 04/07/2025 9:46 AM CDT Body Mass Index 28.43 04/07/2025 9:46 AM CDT Plan of Treatment Health Maintenance Due Date Last Done Comments HEPATITIS C SCREENING 08[birth year]14/1968 DTAP/TDAP/TD VACCINES (1 - Tdap) 1967 PNEUMOCOCCAL VACCINE 50+ (1 of 1 - PCV) 1998 ZOSTER VACCINE (1 of 2) 1998 Respiratory Syncytial Virus (RSV) Vaccine Pt: or over 60 yrs (1 - 1-dose 75+ series) 2023 COVID-19 VACCINE (2 - 2023- season) 2024 02/08/2021 DEPRESSION SCREENING 12/02/2024 10/22/2024 MEDICARE AWV CALENDAR YEAR 2024 INFLUENZA VACCINE (#1) 2025 , 09/20/2022, 04/05/2014, Additional history exists SCREENING FOR DIABETES 10/27/2027 4, 10/26/2024, 10/25/2024, Additional history exists HEPATITIS B VACCINE Aged Out No longe r eligible based on patient's age to complete this topic HIB VACCINE Aged Out No longer eligi ble based on patient's age to complete this topic HPV VACCINE Aged Out No longer eligi ble based on patient's age to complete this topic MENINGOCOCCAL (Group B) VACCINE SHARED DECISION-MAKING Aged Out No longer eligible based on patient's age to complete this topic MENINGOCOCCAL GROUPS A/C/Y/W VACCINE Aged Out No longer eligible based on patient's age to complete this topic Procedures Procedure Name Priority Date/Time Associated Diagnosis Comments BASIC METABOLIC PANEL (CALCIUM TOTAL) Timed 10/27/2024 1:56 AM PHOTOENGRAVING APPRENTICE from Last 3 Months or Most Recently Relevant to Health Maintenance Results * (ABNORMAL) BASIC METABOLIC PANEL (CALCIUM TOTAL) (10/27/2024 1:56 AM PHOTOENGRAVING APPRENTICE) BUN 12 7 - 26 mg/dL 10/27/2024 3:25 AM [facility] Creatinine 0.83 0.71 - 1.16 mg/dL 10/27/2024 3:25 AM [facility] Sodium 139 136 - 145 mmol/L 10/27/2024 3:25 AM [facility] Potassium 3.8 3.5 - 4.5 mmol/L 10/27/2024 3:25 AM [facility] Chloride 104 98 - 107 mmol/L 10/27/2024 3:25 AM [facility] CO2 26 22 - 29 mmol/L 10/27/2024 3:25 AM [facility] Glucose 116(H) 70 - 99 mg/dL 10/27/2024 3:25 AM [facility] Calcium 9.2 8.4 - 10.2 mg/dL 10/27/2024 3:25 AM [facility] Anion Gap 9 6 - 16 10/27/2024 3:25 AM [facility] BUN/Creatinine Ratio 14 7 - 23 10/27/2024 3:25 AM [facility] Osmolality Calculated 289 275 - 295 mOsm/kg 10/27/2024 3:25 AM [facility] eGFR by CKD-EPI >90 >=90 mL/min/1.7 3 m2 10/27/2024 3:25 AM [facility] Blood BLOOD SPECIMEN / Unknown Lab Venipuncture / Unknown 10/27/2024 1:56 AM PHOTOENGRAVING APPRENTICE 10/27/2024 2:54 AM PHOTOENGRAVING APPRENTICE Fausto Burris MD LAB - CHEMISTRY ORDERABLES Fin al Result Performing Organization Address [facility]/State/ZIP Co de Phone Number [facility] [address] [place] [address], [facility] [phone] from Last 3 Months or Most Recently Relevant to Health Maintenance Insurance [employer] ADV Care Teams Client Care Coordinator Relationship Specialty Start Date End Date Alisha Sosa APRN-[employer] [address] [place] [id number] PCP - General Nurse Practitioner 01/27/25
--- OUTSIDE RECORDS SUMMARY | 2025-07-26 10:13 | XMS_ITS | Clinical Summary ---
Author Organization [facility] Administrative Offices Address [address] [place] [address] Care Team Providers Care Framework Developer Name Role Phone Mendoza Marie MD Primary Care Provider [phone] Allergies No known active allergies Medications aspirin (CONOR) 81 mg Oral Tab Take 81 mg by mouth daily. Active lisinopril (PRINIVIL) 20 mg Oral tablet Take 1 Tab by mouth daily. 30 Tab 6 2 Active pantoprazole (PROTONIX) 40 mg Tablet, Delayed Release (E.C.)Indications:Co ronary atherosclerosis of [place] coronary artery,Carotid stenosis, left,HTN (hypertension),Hyper lipidemia,AAA (abdominal aortic aneurysm, ruptured) (CMS/HCC) Take 1 Tab by mouth daily. 30 Tab 6 4 Active torsemide (DEMADEX) 20 mg tabletIndications:Co ronary atherosclerosis of [place] coronary artery,Carotid stenosis, left,HTN (hypertension),Hyper lipidemia,AAA (abdominal aortic aneurysm, ruptured) (CMS/HCC) Take 1 Tab by mouth daily. 60 Tab 4 4 Active potassium chloride 20 mEq Tablet Sustained ReleaseIndications:C oronary atherosclerosis of [place] coronary artery,Carotid stenosis, left,HTN (hypertension),Hyper lipidemia,AAA (abdominal aortic aneurysm, ruptured) (CMS/HCC) Take 10 mEq by mouth daily media operator. 30 Tab 4 4 Active potassium chloride (K-DUR) 20 mEq Extended Release tablet TAKE 1 TABLET BY MOUTH DAILY IN THE BASKET GRADER 30 Tab 6 4 Active metoprolol tartrate (LOPRESSOR) 25 mg tablet TAKE 1 TABLET BY MOUTH TWICE DAILY 60 Tab 6 4 Active atorvastatin (LIPITOR) 20 mg tablet TAKE 1 TABLET BY MOUTH EVERY DAY LATE EVENING 30 Tab 3 5 Active Active Problems Patient Care Coordination No te Formatting of this note migh t be different from the original. Printing Specialist - Dr Keivn Newton Problem Noted Date Diagnosed Date AAA (abdominal aortic aneurysm, ruptured) 2013 Overview (05/04/2014): 04/14 - Endovascular repair at [facility] Carotid stenosis, left Overview (02/03/2013): 06/05 L CEA 06/10 Carotid US - Left with mild dx; Right with moderate dx (50%) Coronary atherosclerosis of [place] coronary maru ry Overview (01/04/2012): 06/05 CAD/Cath/ACS - 100% LAD, 70% Ramus, 70% Cx/Om1, 100% RCA 06/05 CAD/CABG - SVG-LAD, SVG- RCA, SVG-Cx/Om HTN (hypertension) Hyperlipidemia Resolved Problems Problem Noted Date Diagnosed Date Resolved Date Carotid artery disease 01/04 Social History Tobacco Use Types Packs/Day Years Used Date Smoking Tobacco: Former Cigarettes Q uit: 12/02/1984 Smokeless Tobacco: Never Alcohol Use Standard Drinks/Week Comments Yes 1.7 (1 standard drink = 0.6 oz p ure alcohol) Sex and Gender Information Value Date Recorded Sex Assigned at Not on file Legal Sex Male 5:54 AM DATA MANAGEMENT CONSULTANT Gender Identity Not on file Sexual Orientation Not on file Last Filed Vital Signs Vital Sign Reading Time Taken Comments Blood Pressure 133/70 11/11/2014 10:45 AM DATA MANAGEMENT CONSULTANT Pulse 70 11/11/2014 10:45 AM DATA MANAGEMENT CONSULTANT Temperature - - Respiratory Rate 16 11/11/2014 10:45 AM DATA MANAGEMENT CONSULTANT Oxygen Saturation - - Inhaled Oxygen Concentration - - Weight 88.9 kg (196 lb) 11/11/2014 10:45 AM DATA MANAGEMENT CONSULTANT Height 170.2 cm (5' 7) 11/11/2014 10:45 AM DATA MANAGEMENT CONSULTANT Body Mass Index 30.7 11/11/2014 10:45 AM DATA MANAGEMENT CONSULTANT Plan of Treatment Health Maintenance Due Date Last Done Comments DTAP/TDAP/TD VACCINES (1 - Tdap) 1967 PNEUMOCOCCAL VACCINE 50+ YEARS (1 of 1 - PCV) 08/18/19 98 ZOSTER VACCINE (1 of 2) 1998 RSV VACCINE (60+ or ) (1 - 1-dose 75+ series) 2023 INFLUENZA VACCINE (#1) 2025 Insurance MEDICARE PART A AND B [facility] Nicholas Haddox Records ACCESS O Care Teams Framework Developer Relationship Specialty Start Date End Date Mendoza Marie MD [address] [place] [id number] PCP - General Family Practice 06/07/10
--- OUTSIDE RECORDS SUMMARY | 2025-07-26 10:13 | XMS_ITS | Clinical Summary ---
Author Organization [address] Address [address] [place] [id number] Care Team Providers Care Foundry Worker General Name Role Phone No, Physician Primary Care Provider [phone] Froilan Espino MD Unavailable [phone] Allergies No known active allergies Medications atorvastatin (LIPITOR) 20 mg tablet Take 20 mg by mouth nightly 1 9 Active losartan (COZAAR) 25 mg tablet Take 25 mg by mouth daily 9 Active metoprolol (LOPRESSOR) 25 mg tablet Take 25 mg by mouth 2 (two) times a day 4 Active multivitamin (DAILY-ILANA) tablet Take 1 tablet by mouth daily 4 Active omega-3 fatty acids (LOVAZA) 1 gram capsule Take 1,000 mg by mouth Active diazePAM (VALIUM) 5 mg tabletIndicatio ns:anxiety,Amy tion Take 1 tablet (5 mg total) by mouth every 6 (six) hours as needed for anxiety for up to 2 doses Take one tablet one hour prior to procedure. 2 tablet 1 Active oxyCODONE (ROXICODONE) 5 mg immediate release tabletIndicatio ns:Pain Take 1 tablet (5 mg total) by mouth every 4 (four) hours as needed for pain Wean off all narcotic by two weeks after surgery. 30 tablet 1 Active aspirin 81 mg enteric coated tabletIndicatio ns:prevention of thrombosis Take 1 tablet (81 mg total) by mouth 2 (two) times a day Take 81mg Aspirin twice a day until seen by your surgeon 60 tablet 1 Active docusate sodium (COLACE) 100 mg capsuleIndicati ons:constipatio n Take 1 capsule (100 mg total) by mouth 2 (two) times a day as needed for constipation 1 Active polyethylene glycol (MIRALAX) 17 gram packetIndicatio ns:constipation Take 1 packet (17 g total) by mouth daily as needed for constipation [address] (PROTONIX) 40 mg EC tabletIndicatio ns:Mucositis Prophylaxis Take 1 tablet (40 mg total) by mouth daily 30 tablet 1 Active aspirin 81 mg enteric coated tablet Take 81 mg by mouth daily Active torsemide (DEMADEX) 20 mg tablet Take 20 mg by mouth daily 4 Active ticagrelor (Brilinta) 90 mg tablet Take 1 tablet by mouth 2 (two) times a day 9 Active potassium chloride ER (potassium chloride ER) 20 mEq CR tablet Take 10 mEq by mouth 4 Active lisinopriL (PRINIVIL,ZESTR IL) 20 mg tablet Take 20 mg by mouth daily 2 Active docosahexaenoic acid-epa 120-180 mg capsule Take 1,000 mg by mouth Active Active Problems Problem Noted Date Diagnosed Date Status post right partial knee replacement 09/22 Primary osteoarthritis of one knee, right 2020 Status post total replacement of right hip 09/19 Greater trochanteric bursitis of right hip 09/19 Primary osteoarthritis of right knee 03/17/2020 Deep venous thrombosis of fe moral vein with thrombophlebitis 03/25/2019 Carotid stenosis, left 05/21/2017 Overview (03/17/2020): Overview: Overview: 06/05 L CEA 06/10 Carotid US - Left with mild dx; Right with moderate dx (50%) 06/05 L CEA 06/10 Carotid US - Left with mild dx; Right with moderate dx (50%) S/P CABG (coronary artery bypass graft) 01/08/20 17 Coronary atherosclerosis of knik coronary maru ry 05/17/2015 Overview (03/17/2020): 06/05 CAD/Cath/ACS - 100% LAD, 70% Ramus, [...] ( confirmed by CTA) 12/19 PCI/LENORE Cx/Om2 06/05 CAD/Cath/ACS - 100% LAD, 70% Ramus, 70% Cx/Om1, 100% RCA 06/05 CAD/CABG - SVG-LAD, SVG- RCA, SVG-Cx/Om H/O carotid endarterectomy 05/17/2015 Overview (03/17/2020): Overview: Overview: 06/05 L CEA 06/10 Carotid US - Left with mild dx; Right with moderate dx (50%) 11/16 Carotid US - Left with mild dx; Right with moderate dx (50-79%) HTN (hypertension) 05/17/2015 Mixed hyperlipidemia 05/17/2015 Ruptured abdominal aortic aneurysm (AAA) (CMS/HC C) 05/04/2014 Overview (03/17/2020): Overview: Overview: [facility] Immunizations Immunization Administration Dates Next Due Atbrox (J&J) SARS-CoV-2 Vaccination 02/08/2021 Surgical History Surgery Date Site/Laterality Comments ABDOMINAL AORTIC ANEURYSM REPAIR CORONARY ARTERY BYPASS GRAFT Medical History Medical History Date Comments Osteoarthritis of right knee Obesity CAD (coronary artery disease) Carotid artery disease HLD (hyperlipidemia) HTN (hypertension) Ruptured abdominal aortic aneurysm (AAA) (HCC) DVT (deep venous thrombosis) Hx of CABG TIA (transient ischemic attack) Social History Tobacco Use Types Packs/Day Years Used Date Smoking Tobacco: Never AUDIT-C Answer Date Recorded Q1: How often do you have a drink containing alcohol? 4 or more times a week 08/25/2021 Q2: How many drinks containi ng alcohol do you have on a typical day when you are drinking? 3 or 4 Q3: How often do you have si x or more drinks on one occasion? Never 08/25/2021 Sex and Gender Information Value Date Recorded Sex Assigned at Not on file Legal Sex Male 9:09 AM POSTER Gender Identity Not on file Sexual Orientation Not on file Obstetrics History Last Filed Vital Signs Vital Sign Reading Time Taken Comments Blood Pressure 101/50 09/07/2021 12:43 PM CDT Pulse 74 09/07/2021 12:43 PM CDT Temperature 36.3 C (97.3 F) 09/07/2021 12:43 PM CDT Respiratory Rate 18 09/07/2021 12:43 PM CDT Oxygen Saturation 94% 09/07/2021 12:43 PM CDT Inhaled Oxygen Concentration - - Weight 95.7 kg (211 lb) 12/04/2021 9:48 AM POSTER Height 172.7 cm (5' 8) 12/04/2021 9:48 AM POSTER Body Mass Index 32.08 12/04/2021 9:48 AM POSTER Plan of Treatment Health Maintenance Due Date Last Done Comments Depression Screening 1950 Hepatitis C Screening 1948 Hepatitis B Screening 1966 Zoster Vaccine (1 of 2) 1998 Well Visit 65+ 2013 Fall Risk Assessment 09/07/2022 09/07/2021 Covid-19 Vaccine ( season) 08/02/202409/2021 Influenza Vaccine (#1) 2025 04/05/2014, 2010 DTaP/Tdap/Td Vaccine (3 - Td or Tdap) 12/21/2031, 08/24/2005 Pneumococcal vaccine 65+ Completed 023, 12/21/2021, 04/06/2014 Medical Devices Implanted Type Area Pile Driver Operator Helper Device Identifier Shelf Expiration Date Model / Serial / Lot [employer] 6191-1-010 Simplex P Radiopaque Full Dose Cement Bone Sterile - [id number] Implanted:Qty: 1 on 09/06/2021 by Froilan Espino MD at [facility] Right: Knee [employer] 12/01/2022 6191-1-010 / / [id number] [employer] [id number] Journey Ii Unicompartmental Knee Right Medial 6 Baseplate Tibial - [id number] Implanted:Qty: 1 on 09/06/2021 by Froilan Espino MD at [facility] Right: Knee [employer] [id number] 03/20/2031 [id number] / / [id number] [employer] [id number] Journey Ii Unicompartmental Knee Right Medial Left Lateral - [id number] Implanted:Qty: 1 on 09/06/2021 by Froilan Espino MD at [facility] Right: Knee [employer] [id number] 01/01/2031 [id number] / / [id number] [employer] [id number] Insert Tibial Knee Journey Ii Unicompartmental Medial Xlpe Sz 5-6 10mm Sterile Latex Free - [id number] Implanted:Qty: 1 on 09/06/2021 by Froilan Espino MD at [facility] Right: Knee [employer] [id number] 02/07/2031 [id number] / / [id number] Insurance MEDICARE Member Subscriber Plan / Payer (Ef fective 2013-Present) Name:Sharad Mcclain Member ID:[id number] Relation to Subscriber:Self Name:Sharad Mcclain Subscriber ID:[id number] Payer ID:[id number] Group ID:Not on file Type:MEDICARE TRADITIONAL Address: [address] [address] [place] [address] AARP [facility] MEDICARE ADV [facility] MEDICARE ADV Advance Directives For more information, please contact: [phone] * Full Code (Latest Code Status on File) Date Activated Date Inactivated Comments 09/06/2021 2:06 PM 09/07/2021 7:06 PM Care Teams Foundry Worker General Relationship Specialty Start Date End Date No, Physician PCP - General 08/25/21 Froilan Espino MD Consulting Physician Orthopedic Surgery 09/07/21
== END 2025-07-26 09:31 | disposition home or self-care (01) ==
PROVIDERS: PCP Nurse Practitioner; Visit Provider Nurse Practitioner
DX: R74.8 Abnormal levels of other serum enzymes (principal); K76.0 Fatty (change of) liver, not elsewhere classified
CPT/HCPCS: 76705